=== PATIENT | female | born 1950 | race Caucasian/White ===

== ENCOUNTER 2019-08-08 15:41 | Inpatient (IN) | payer BC, MEDICARE, SELFPAY ==
[2019-08-08] VITALS (8 sets, daily range): BP systolic 65–139; BP diastolic 43–84; PULSE 74–103; RESP 15–20; TEMP 36.7–36.9; O2SAT 92–96; BMI 31.1
--- NOTE | 2019-08-08 16:31 | EKG12_ITS ---
Test Reason : GI BLEED Blood Pressure : / mmHG Vent. Rate : 094 BPM Atrial Rate : 094 BPM P-R Int : 118 ms QRS Dur : 084 ms QT Int : 354 ms P-R-T Axes : 071 087 093 degrees QTc Int : 442 ms Normal sinus rhythm Possible Left atrial enlargement ST & T wave abnormality, consider anterolateral ischemia Abnormal ECG Confirmed by CHERYL PATEL, RAFAEL ([id number]), story editor JAIMIE VILLALTA ([id number]) on 08/10/2019 10:48:30 AM Referred By: Derrick Brooks Confirmed By:RAFAEL LUNA MD
--- NOTE | 2019-08-08 16:35 | NURSING ---
NO OLD EKGS
[2019-08-08 16:45] LABS: Absolute Lymphocyte Count 2.52 X10^3/uL (0.83-4.51); Absolute Neutrophil Count 6.4 X10^3/uL (2.0-7.7); Basophil# 0.05 X10^3/uL; Basophil% 0.5 % (0-1); Eosinophil# 0.23 X10^3/uL; Eosinophils% 2.3 % (0-5); Hematocrit 37.6 % (37-47); Hemoglobin 12.6 g/dL (12.0-15.0); Lymphocyte # 2.52 X10^3/ul (4.0); Lymphocyte % 25.2 % (19-41); Mean Corp Hgb Conc 33.5 g/dL (32-36); Mean Corpuscular Volume 101.3 fL (81-99); Mean Platelet Vol. 10.3 fl (6.2-12.0); Monocyte# 0.75 X10^3/uL; Monocyte% 7.5 % (0-10); NRBC Flagged by Analyzer 0 % (0-5); Neutrophil # 6.43 X10^3/uL (2.7-7.7); Neutrophil % 64.2 % (47-70); Platelet Count 218 K/mm3 (150-450); RBC Distribution Width CV 13.2 % (11.6-14.6); RBC Distribution Width SD 49.2 fl (35.1-43.9); Red Blood Count 3.71 M/mm3 (4.2-5.4)
[2019-08-08 16:53] LABS: International Normalized Ratio 1.1; Partial Thromboplast Time 25.2 Seconds (24.1-36.2); Prothrombin Time (Protime)PT. 14.1 SECONDS (11.7-14.9)
[2019-08-08] MEDS: 0.9% Normal Saline 1,000 ML 150 ML IV (16:55)
[2019-08-08] MEDS: Ondansetron 4 MG/2 ML Vial IV (16:55)
[2019-08-08 17:05] LABS: AST(SGOT) 19 U/L (15-37); Alanine Aminotransfer ALT/SGPT 24 U/L (13-56); Albumin, Serum 3.2 g/dL (3.2-5.0); Alkaline Phosphatase 79 U/L (45-117); Anion Gap 6 (5-15); BUN 21 mg/dL (7-18); BUN/Creat Ratio 35.8 RATIO (10-20); Bilirubin, Direct 0.14 mg/dL (0.00-0.30); Calcium,Total 8.1 mg/dL (8.5-10.1); Chloride 106 mmol/L (98-107); Creatinine, Serum 0.59 mg/dL (0.55-1.02); EST Glomerular Filtration Rate 109 mL/min (>60); Est Glom Filt Rate - Afr Amer 131 mL/min (>60); Estimated Creatinine Clearance 53.09 ml/min; Globulin 2.8 g/dL (2.2-4.2); Glucose 118 mg/dL (74-106); Potassium 3.7 mmol/L (3.5-5.1); Sodium Level 141 mmol/L (136-145)
--- NOTE | 2019-08-08 17:37 | ED.VISSUMM ---
- ER Visit Summary Date of Service: 08/08/19 Chief Complaint: GI bleed History of Present Illness: The patient is a 69 F who states this morning when she woke up she had 3 episodes of black tarry diarrhea stools. She felt nauseous most of the day and very weak. This afternoon she had an episode of vomiting that showed bright red blood. She is on aspirin and Plavix. She had a heart bypass surgery in 1990. She states she recently had heart catheterization that showed the grafts to be open. She is a smoker. She denies any other anti-inflammatory medications. Physical Examination: Afebrile vital signs are stable noted heart rate of 99 Gen: Well-nourished well-developed Head: Normocephalic atraumatic Eyes: Perrl EOMI ENT: TMs clear no rhinorrhea moist mucous membranes Neck: Supple no lymphadenopathy no JVD nontender CVS: Regular rate rhythm no murmurs normal S1-S2 Respiratory: No distress clear to auscultation bilaterally chest nontender Abdomen: Soft nontender nondistended normal bowel sounds no masses Rectal: Black loose stool Back: Nontender Extremity: Nontender no edema Skin: Normal color no rash Neuro: alert orientated ?3 CN II-XII intact normal strength sensation Psych: Normal affect normal mood Test Results: Hemoccult positive. Hemoglobin 12.6. She is typed and screened. Coags obtained. EKG normal sinus rhythm at a rate of 94 without ectopy. Emergency Department Course and Treatment: Patient received IV fluids and Protonix. Her orthostatics are grossly positive as she goes to 60 systolic and almost passes out. Dr. Suárez is on for no doc surgery he would be willing to perform endoscopy tomorrow. Dr. Brooks will be admitting for medicine. Impression: 1. Upper GI bleed 2. Orthostatic hypotension This note was generated with In Flow dictation software. It may contain incorrect words, spelling, and punctuation that were not noted in review of the chart prior to signing ED Disposition - Plan for ED Patient: Referrals: Gaby German, ENEDINA-C [Primary Care Provider] -
--- NOTE | 2019-08-08 17:41 | NURSING ---
PCU UPPER GI BLEED ASHELFAH
--- NOTE | 2019-08-08 17:50 | HP.PCM_ITS ---
<Edwar Morgan - Last Filed: 08/08/19 17:50> Problem List (1) GI bleed Status: Acute (2) Alcohol abuse Status: Chronic (3) Coronary artery disease Status: Chronic (4) Hyperlipidemia Status: Chronic (5) Hypothyroidism Status: Chronic (6) Status post coronary artery bypass graft Status: Chronic History of Present Illness Date of Admission: 08/08/19 Chief Complaint: gi bleed The patient is a 69 year old F with pmhx of CAD with prior CABG in 1990, HLD, smoker - 1 ppd for >40 years, and alcohol abuse drinks 6 beers daily at least who presented to the ER with c/o black stools and coffee ground emesis. She was in her usual state of health until this AM. When she woke up this AM she went to the bathroom and had a black bowel movement. An hour later she had a second black bowel movement. She ate half of a sandwich and went back to bed. She got up later at about 1430 and felt very weak, and became nauseous, dizzy, and lightheaded walking down the stairs. She vomited coffee ground emesis. She was then brought to the ER by squad. Currently she has mild nausea. No abdominal pain. She is very orthostatic in the ER. Lying in bed no dizziness/LH. She denies hx of GI bleeding. She is prescribed plavix, and also takes 2 aspirin containing exedrin daily - she says this is to help with niacin side effects. Dr. Harris was consulted and plans for endoscopy. [] Past Medical History Past Medical History (Chronic Problems): Chronic Problems Alcohol abuse (Chronic) Hypothyroidism (Chronic) Hyperlipidemia (Chronic) Status post coronary artery bypass graft (Chronic) Coronary artery disease (Chronic) Allergies Penicillins [PCN] Allergy (Verified 08/08/19 15:42) Unknown Home Medications: Ambulatory Orders Medication Instructions Recorded Albuterol Sulfate [Albuterol 2 puff INHALATION Q4H PRN PRN 08/08/19 Sulfate Hfa] Aspirin/Acetaminophen/Caffeine 2 tab PO QHS 08/08/19 [Excedrin Migraine Caplet] Clopidogrel Bisulfate [Plavix] 75 mg PO DAILY 08/08/19 Escitalopram Oxalate [Lexapro] 10 mg PO DAILY 08/08/19 Ezetimibe [Zetia] 10 mg PO DAILY 08/08/19 Levothyroxine [Synthroid] 100 mcg PO DAILY 08/08/19 Niacin [Niacin ER] 1,000 mg PO DAILY 08/08/19 Rosuvastatin Calcium [Crestor] 40 mg PO DAILY 08/08/19 Surgical History: coronary bypass surgery, total knee arthroplasty, tonsillectomy Psychiatric History: 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 Denies: Chills, Fever, Weight Change HEENT: Denies: Head Aches, Sinus Congestion, Sinus Drainage Cardiovascular: Denies: Chest Pain, Palpitations Respiratory: Denies: Cough, Shortness of breath at rest, Sputum production Gastrointestinal: Reports: Hematochezia, Nausea, Melena, Vomiting. Denies: Abdominal Pain Genitourinary: Denies: Dysuria Musculoskeletal: Denies: Joint Pain, Joint Tenderness Skin: Denies: Rash, Wounds Neurological: Denies: Numbness, Tingling, Focal weakness Psychiatric: Denies: Anxiety, Depression, Homicidal Ideations, Suicidal Ideations Hematologic/ Lymphatic: Denies: Easy Bruising, Easy Bleeding VTE Information - Inpt Only VTE Present on Admission: No VTE Mechan Device Prophylaxis: SCD's VTE Pharm Prophylaxis ordered?: No Patient Problems: Active and Suspected Problems GI bleed (Acute) - Physical Exam General: Alert, Oriented x3, Cooperative HEENT: Atraumatic, PERRLA, EOMI, Normocephalic Neck: Supple, No JVD, Negative Carotid Bruits Lungs: Clear to auscultation, Normal air movement Cardiovascular: Regular rate, No murmurs Abdomen: Bowel Sounds Present, Soft, Non Tender Extremities: No edema, Capillary Refill Less than 3 Seconds Skin: No rashes, No breakdown Musculoskeletal: No Tenderness to Palpation of Joints or Extremities Neurological: Cranial nerves II-XII grossly intact Psych/Mental Status: Normal Affect, Appropriate, Alert and oriented to time, place, person, mood and affect Vital Signs Temp Pulse Resp BP Pulse Ox 98.2 F 97 20 H 120/60 94 08/08/19 15:42 08/08/19 17:03 08/08/19 15:45 08/08/19 17:03 08/08/19 15:45 Oxygen Delivery Method Room Air Weight: 198 lb 6.656 oz Body Mass Index (BMI) 31.1 Microbiology Past 72 Hours 08/08/19 17:05 Stool Occult Blood (STEPHANIE) - Final Stool Occult Blood Positive Laboratory Tests Past 24 Hrs 08/08/19 08/08/19 08/08/19 15:44 15:44 15:44 WBC 10.0 RBC 3.71 L Hgb 12.6 Hct 37.6 MCV 101.3 H MCH 34.0 H MCHC 33.5 RDW Std Deviation 49.2 H RDW Coeff of Jose Roberto 13.2 Plt Count 218 MPV 10.3 Immature Gran % (Auto) 0.300 Neut % (Auto) 64.2 Lymph % (Auto) 25.2 [place] % (Auto) 7.5 Eos % (Auto) 2.3 Baso % (Auto) 0.5 Absolute Neuts (auto) 6.4 Absolute Lymphs (auto) 2.52 Nucleated RBC % 0 PT 14.1 INR 1.1 APTT 25.2 Sodium 141 Potassium 3.7 Chloride 106 Carbon Dioxide 29.0 Anion Gap 6 BUN 21 H Creatinine 0.59 Estim Creat Clear Calc 53.09 Est GFR (MDRD) Af Amer 131 Est GFR (MDRD) Non-Af 109 BUN/Creatinine Ratio 35.8 H Glucose 118 H Calcium 8.1 L Total Bilirubin 0.50 Direct Bilirubin 0.14 AST 19 ALT 24 Alkaline Phosphatase 79 Total Protein 6.0 L Albumin 3.2 Globulin 2.8 Blood Type Antibody Screen 08/08/19 08/08/19 15:44 17:23 WBC RBC Hgb Hct MCV MCH MCHC RDW Std Deviation RDW Coeff of Jose Roberto Plt Count MPV Immature Gran % (Auto) Neut % (Auto) Lymph % (Auto) [place] % (Auto) Eos % (Auto) Baso % (Auto) Absolute Neuts (auto) Absolute Lymphs (auto) Nucleated RBC % PT INR APTT Sodium Potassium Chloride Carbon Dioxide Anion Gap BUN Creatinine Estim Creat Clear Calc Est GFR (MDRD) Af Amer Est GFR (MDRD) Non-Af BUN/Creatinine Ratio Glucose Calcium Total Bilirubin Direct Bilirubin AST ALT Alkaline Phosphatase Total Protein Albumin Globulin Blood Type Cancelled Pending Antibody Screen Cancelled Pending Assessment/Plan All Active Problems GI bleed (Acute) 1. Acute GI bleed presumed upper - coffee ground emesis and black stools. Hgb normal currently. + orthos in the ER. Dizz/LH on standing. -Risk factors include use of aspirin (2 excedrin daily) and plavix -Drinks at least 6 beers per day -Smokes 1 ppd -Start protonix drip, serial H/H, consult Dr. Harris for endoscopy. IV fluids, clear liquid diet. Type, cross, hold 2 units PRBC 2. CAD with prior CABG - CABG in 1990. 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 plavix held. continue statin. She is not on daily baby aspirin (as she takes daily excedrin), she does not take beta blockers or tim inhibitors 3. Nicotine abuse - Smokes 1 ppd, for at least 40 years. She has been told she has COPD but does not think she has ever been formally diagnosed. Nicotine patch if desired, prn aerosols. 4. Alcohol abuse - drinks at least 6 beers per day. CIWA protocol, PRN ativan 5. Depression - lexapro 6. Hypothyroidism - synthroid 7. HLD - on statin, niacin, zetia DVT ppx: SCDs This patient was seen by Edwar Morgan PA-C under the supervision of Doctor Cecilia. <Derrick Brooks E - Last Filed: 08/08/19 18:13> History of Present Illness The patient is a 69 year old F [] Past Medical History Allergies Penicillins [PCN] Allergy (Verified 08/08/19 15:42) Unknown - Physical Exam Vital Signs Temp Pulse Resp BP Pulse Ox 98.2 F 97 20 H 120/60 94 08/08/19 15:42 08/08/19 17:03 08/08/19 15:45 08/08/19 17:03 08/08/19 15:45 Oxygen Delivery Method Room Air Weight: 198 lb 6.656 oz Body Mass Index (BMI) 31.1 Microbiology Past 72 Hours 08/08/19 17:05 Stool Occult Blood (STEPHANIE) - Final Stool Occult Blood Positive Laboratory Tests Past 24 Hrs 08/08/19 08/08/19 08/08/19 15:44 15:44 15:44 WBC 10.0 RBC 3.71 L Hgb 12.6 Hct 37.6 MCV 101.3 H MCH 34.0 H MCHC 33.5 RDW Std Deviation 49.2 H RDW Coeff of Jose Roberto 13.2 Plt Count 218 MPV 10.3 Immature Gran % (Auto) 0.300 Neut % (Auto) 64.2 Lymph % (Auto) 25.2 [place] % (Auto) 7.5 Eos % (Auto) 2.3 Baso % (Auto) 0.5 Absolute Neuts (auto) 6.4 Absolute Lymphs (auto) 2.52 Nucleated RBC % 0 PT 14.1 INR 1.1 APTT 25.2 Sodium 141 Potassium 3.7 Chloride 106 Carbon Dioxide 29.0 Anion Gap 6 BUN 21 H Creatinine 0.59 Estim Creat Clear Calc 53.09 Est GFR (MDRD) Af Amer 131 Est GFR (MDRD) Non-Af 109 BUN/Creatinine Ratio 35.8 H Glucose 118 H Calcium 8.1 L Total Bilirubin 0.50 Direct Bilirubin 0.14 AST 19 ALT 24 Alkaline Phosphatase 79 Total Protein 6.0 L Albumin 3.2 Globulin 2.8 Blood Type Antibody Screen 08/08/19 08/08/19 15:44 17:23 WBC RBC Hgb Hct MCV MCH MCHC RDW Std Deviation RDW Coeff of Jose Roberto Plt Count MPV Immature Gran % (Auto) Neut % (Auto) Lymph % (Auto) [place] % (Auto) Eos % (Auto) Baso % (Auto) Absolute Neuts (auto) Absolute Lymphs (auto) Nucleated RBC % PT INR APTT Sodium Potassium Chloride Carbon Dioxide Anion Gap BUN Creatinine Estim Creat Clear Calc Est GFR (MDRD) Af Amer Est GFR (MDRD) Non-Af BUN/Creatinine Ratio Glucose Calcium Total Bilirubin Direct Bilirubin AST ALT Alkaline Phosphatase Total Protein Albumin Globulin Blood Type Cancelled Pending Antibody Screen Cancelled Pending Blood pressure on laying flat was 120/60, 133/65 while sitting and dropped down to 65/43 upon standing. Orthostatic hypotension positive. Assessment/Plan Hospitalist note: I am seeing this patient in conjunction with Edwar Morgan. I independently seen and examined the patient. History and physical, laboratory data reviewed and I concur with the above admission and work-up plan. Patient presented to the emergency room because of black tarry stools that started today morning, had 3 bowel movement with dark black stools, associated with one episode of coffee- ground emesis as well as dizziness and weakness and without aggravating or relieving factors. She reported associated nausea as well. She denied chest pain, shortness of breath, syncope. She has been on aspirin and Plavix for history of CAD status post CABG in 1990 and she has been drinking alcohol daily, she drinks about 6 beers daily. In the emergency department, she was afebrile, tachycardic, blood pressure was stable but her orthostatic vitals were positive for orthostatic hypotension. Pulse ox was maintained on room air. Routine blood work was unremarkable. LFT was normal. She is being admitted for GI bleed probably upper GI bleed with orthostatic hypotension and tachycardia. - Physical Exam General: Alert, Oriented x3, Cooperative, No apparent distress. HEENT: Atraumatic, PERRLA, EOMI. Neck: Supple, No JVD, Negative Carotid Bruits, Trachea Midline, Thyroid Normal. Lungs: Clear to auscultation, Normal air movement, No rhonchi, No wheeze, No rales. Cardiovascular: Regular rate, Regular Rhythm, Normal S1, Normal S2, PMI Normal. Abdomen: Bowel Sounds Present, Soft, Non Tender, Non-Distended, No Hepato- splenomegaly. Extremities: No clubbing, No cyanosis, No edema Skin: No rashes, No breakdown Neurological: Normal power and tone of all limbs, cranial nerves are intact, neuro grossly intact. Assessment and plan: #1 GI bleed: Probably upper GI bleed. Patient has been on aspirin, Plavix and she drinks alcohol every day. Peptic ulcer disease is the differential diagnosis. Patient developed orthostatic hypotension and she has been tachycardic. BUN is 21. Plan: Admit to PCU, cardiac monitoring, IV fluids, keep on clear liquids, start IV Protonix drip, H&H every 8 hours, type and crossmatch 2 units of packed RBCs, transfuse if hemoglobin less than 8 g/dL, general surgery consult for upper endoscopy, repeat CBC and BMP tomorrow morning. #2 alcohol abuse: Patient drinks at least 6 beers daily. Plan for CIWA protocol, PRN Ativan. #3 CAD status post CABG: She had CABG back in 1990. She denies any chest pain or shortness of breath. Plan to hold Plavix and aspirin, continue statins. She is not on beta-blockers or TIM inhibitors. #4 other chronic medical problems: Stable, continue current medications as above. This note was generated with [employer] dictation software. It may contain incorrect words, spelling, and punctuation that were not noted in checking the note before signing. Code Visit Inpatient E&M: 19036 Init Hosp L3
--- NOTE | 2019-08-08 18:00 | NURSING ---
DR ACEVES IN ROOM
--- NOTE | 2019-08-08 18:22 | CON.PCM_ITS ---
Reason for Consult Date of Consultation: 08/08/19 Reason for Consultation: hemetemesis History of Present Illness: The patient is a 69 year old F who noted 3 bloody bowel movements today, then had one episode of hematemesis and felt dizzy. She presented to [facility] ER. She was found to be orthostatic. She has a history of CAD, S/p CABG in the past. No PTCA or stents. told had a negative recent cardiac workup. She is taking plavix and aspirin. She smokes, drinks 6+ beers/day. Past Medical History Past Medical History (Chronic Problems): Chronic Problems Alcohol abuse (Chronic) Hypothyroidism (Chronic) Hyperlipidemia (Chronic) Status post coronary artery bypass graft (Chronic) Coronary artery disease (Chronic) Allergies Penicillins [PCN] Allergy (Verified 08/08/19 15:42) Unknown Home Medications: Ambulatory Orders Medication Instructions Recorded Albuterol Sulfate [Albuterol 2 puff INHALATION Q4H PRN PRN 08/08/19 Sulfate Hfa] Aspirin/Acetaminophen/Caffeine 2 tab PO QHS 08/08/19 [Excedrin Migraine Caplet] Clopidogrel Bisulfate [Plavix] 75 mg PO DAILY 08/08/19 Escitalopram Oxalate [Lexapro] 10 mg PO DAILY 08/08/19 Ezetimibe [Zetia] 10 mg PO DAILY 08/08/19 Levothyroxine [Synthroid] 100 mcg PO DAILY 08/08/19 Niacin [Niacin ER] 1,000 mg PO DAILY 08/08/19 Rosuvastatin Calcium [Crestor] 40 mg PO DAILY 08/08/19 Surgical History: coronary bypass surgery, total knee arthroplasty, tonsillectomy Psychiatric History: 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 Denies: Chest Pain, Palpitations Respiratory: Denies: Cough, Shortness of breath at rest, Sputum production Gastrointestinal: Reports: Hematemesis, Hematochezia, Melena. Denies: Abdominal Pain, Nausea, Vomiting Genitourinary: Denies: Dysuria Musculoskeletal: Denies: Joint Pain, Joint Tenderness Skin: Denies: Rash, Wounds Neurological: Denies: Numbness, Tingling, Focal weakness Psychiatric: Denies: Anxiety, Depression, Homicidal Ideations, Suicidal Ideations Hematologic/ Lymphatic: Denies: Easy Bruising, Easy Bleeding Patient Problems: Active and Suspected Problems GI bleed (Acute) - Physical Exam General: Alert, Oriented x3, Cooperative Lungs: Clear to auscultation, Normal air movement Cardiovascular: Regular rate, No murmurs Abdomen: Bowel Sounds Present, Soft, Non Tender Vital Signs Temp Pulse Resp BP Pulse Ox 98.2 F 97 15 124/84 H 92 08/08/19 15:42 08/08/19 18:08 08/08/19 18:08 08/08/19 18:08 08/08/19 18:08 Oxygen Delivery Method Room Air Weight: 90 kg Body Mass Index (BMI) 31.1 Microbiology Past 72 Hours 08/08/19 17:05 Stool Occult Blood (STEPHANIE) - Final Stool Occult Blood Positive Laboratory Tests Past 24 Hrs 08/08/19 08/08/19 08/08/19 15:44 15:44 15:44 WBC 10.0 RBC 3.71 L Hgb 12.6 Hct 37.6 MCV 101.3 H MCH 34.0 H MCHC 33.5 RDW Std Deviation 49.2 H RDW Coeff of Jose Roberto 13.2 Plt Count 218 MPV 10.3 Immature Gran % (Auto) 0.300 Neut % (Auto) 64.2 Lymph % (Auto) 25.2 [place] % (Auto) 7.5 Eos % (Auto) 2.3 Baso % (Auto) 0.5 Absolute Neuts (auto) 6.4 Absolute Lymphs (auto) 2.52 Nucleated RBC % 0 PT 14.1 INR 1.1 APTT 25.2 Sodium 141 Potassium 3.7 Chloride 106 Carbon Dioxide 29.0 Anion Gap 6 BUN 21 H Creatinine 0.59 Estim Creat Clear Calc 53.09 Est GFR (MDRD) Af Amer 131 Est GFR (MDRD) Non-Af 109 BUN/Creatinine Ratio 35.8 H Glucose 118 H Calcium 8.1 L Total Bilirubin 0.50 Direct Bilirubin 0.14 AST 19 ALT 24 Alkaline Phosphatase 79 Total Protein 6.0 L Albumin 3.2 Globulin 2.8 Blood Type Antibody Screen 08/08/19 08/08/19 15:44 17:23 WBC RBC Hgb Hct MCV MCH MCHC RDW Std Deviation RDW Coeff of Jose Roberto Plt Count MPV Immature Gran % (Auto) Neut % (Auto) Lymph % (Auto) [place] % (Auto) Eos % (Auto) Baso % (Auto) Absolute Neuts (auto) Absolute Lymphs (auto) Nucleated RBC % PT INR APTT Sodium Potassium Chloride Carbon Dioxide Anion Gap BUN Creatinine Estim Creat Clear Calc Est GFR (MDRD) Af Amer Est GFR (MDRD) Non-Af BUN/Creatinine Ratio Glucose Calcium Total Bilirubin Direct Bilirubin AST ALT Alkaline Phosphatase Total Protein Albumin Globulin Blood Type Cancelled Pending Antibody Screen Cancelled Pending Assessment/Plan All Active Problems GI bleed (Acute) GI bleed - likely ulcer She will be admitted. resuscitation, type and screen. Protonix IV started. Will plan for EGD with possible control of bleeding in am. THe patient understands the risks, benefits, possible complications and alternatives and consents to the planned procedure.
[2019-08-08] MEDS: 0.9% Normal Saline 1,000 ML 100 ML IV (19:16)
[2019-08-08 19:49] LABS: Hematocrit 35.8 % (37-47); Hemoglobin 11.8 g/dL (12.0-15.0)
[2019-08-09] VITALS (16 sets, daily range): BP systolic 87–120; BP diastolic 39–71; PULSE 58–89; RESP 16–95; TEMP 36.3–37.1; O2SAT 90–100; BMI 31.1
[2019-08-09 03:44] LABS: Absolute Lymphocyte Count 3.17 X10^3/uL (0.83-4.51); Absolute Neutrophil Count 2.5 X10^3/uL (2.0-7.7); Basophil# 0.03 X10^3/uL; Basophil% 0.5 % (0-1); Eosinophils% 1.6 % (0-5); Hematocrit 32.1 % (37-47); Hemoglobin 10.4 g/dL (12.0-15.0); Lymphocyte # 3.17 X10^3/ul (4.0); Lymphocyte % 50.2 % (19-41); Mean Corp Hgb Conc 32.4 g/dL (32-36); Mean Corpuscular Hgb 33.2 pg (27.0-32.0); Mean Corpuscular Volume 102.6 fL (81-99); Mean Platelet Vol. 9.8 fl (6.2-12.0); Monocyte% 7.9 % (0-10); NRBC Flagged by Analyzer 0 % (0-5); Neutrophil % 39.6 % (47-70); Platelet Count 192 K/mm3 (150-450); RBC Distribution Width CV 13.3 % (11.6-14.6); RBC Distribution Width SD 49.8 fl (35.1-43.9); Red Blood Count 3.13 M/mm3 (4.2-5.4); White Blood Count 6.3 K/mm3 (4.4-11.0)
[2019-08-09 03:49] LABS: Anion Gap 6 (5-15); BUN 30 mg/dL (7-18); BUN/Creat Ratio 50.6 RATIO (10-20); Calcium,Total 7.6 mg/dL (8.5-10.1); Chloride 110 mmol/L (98-107); Creatinine, Serum 0.59 mg/dL (0.55-1.02); EST Glomerular Filtration Rate 107 mL/min (>60); Est Glom Filt Rate - Afr Amer 130 mL/min (>60); Estimated Creatinine Clearance 53.09 ml/min; Glucose 96 mg/dL (74-106); Potassium 3.9 mmol/L (3.5-5.1); Sodium Level 145 mmol/L (136-145)
[2019-08-09] MEDS: 0.9% Normal Saline 1,000 ML 100 ML IV ×2 (05:20→07:39)
--- NOTE | 2019-08-09 06:35 | IMM_PTH ---
PATIENT: HENRY PEDERSON LOC: PCU U#:[id number] AGE/SX: 69/F ROOM: [facility] RE08/08/[address]: Dr. Robbie Nicole MD : 1950 BED: 1 DIS: 08/10/2019 SPEC #: [id number] RECD: 08/09/19 15:43 STATUS: JANAE REQ #: [id number] HEIID: 08/09/19 06:[address]: Wilner Harris DEPT: IMMUNOHISTOCHEMISTRY RECD BY: Monae Bullard ENTERED: 08/09/19 15:44 SP TYPE: IMMUNO OTHR DR: MD Dr. Derrick Kirby MD Dr. Paul Moodispaw, MD Kathy Seitz, PEARL GLUE DRIER-C Tissues: A - Stomach, NOS Procedures: H Pylori (initial) PHYSICIAN & INSTITUTION [place] [id number] SPECIMEN INFORMATION: Tissue Source: A - Antrum biopsy Clinical Info: GI bleed Specimen Number: [id number] CPT code: 10176 METHODOLOGY: Deparaffinized sections of prefer/formalin-fixed tissue or PAP/DQ stained slides are incubated with monoclonal/polyclonal antibodies/oligonucleotide probes. Localization is made via biotin free immunoperoxidase method. Appropriate controls are performed and reacted as expected. Results on target cell population are indicated in the following table: RESULTS: ANTIBODY / CLONE RESULT Block A H Pylori (polyclonal) negative These tests were developed and their performance characteristics determined by [facility]. They may not have been cleared or approved by the U.S. Food and Drug Administration. The FDA has determined that such clearance or approval is not necessary. INTERPRETATION: A. Antrum biopsy: Negative for Helicobacter pylori organisms. SJ:elizabeth 08/11/19
--- NOTE | 2019-08-09 06:35 | EGD_PTH ---
PATIENT: HENRY PEDERSON LOC: PCU U#:[id number] AGE/SX: 69/F ROOM: [facility] RE08/08/[address]: Dr. Robbie Nicole MD : 1950 BED: 1 DIS: 08/10/2019 SPEC #: [id number] RECD: 08/09/19 10:22 STATUS: JANAE CINTHIA #: [id number] HEIDI: 08/09/19 06:[address]: Wilner Harris DEPT: SURGICAL PATHOLOGY RECD BY: Carlos Lees ENTERED: 08/09/19 13:38 SP TYPE: EGD BIOPSY OT DR: MD Dr. Derrick Kirby MD Dr. Paul Moodispaw, MD Kathy Seitz, WINERY WORKER-C Tissues: A - Gastric mucous membrane B - Gastric mucous membrane Procedures: Special Stain Group II Surgery Specimen Level IV Alcian Blue/PAS (control) HEADER OPERATION: EGD ([facility] [place]) PRE-OP DIAGNOSIS: GI bleed TISSUE SUBMITTED: A - Antrum biopsy for H. pylori and path, B - GE junction biopsy MICROSCOPIC DIAGNOSIS A. Antrum, biopsy: Mild gastritis. See microscopic description and comment. B. GE junction, biopsy: A fragment of gastroesophageal mucosa with mild chronic inflammation. Intestinal metaplasia (goblet cell metaplasia) is not identified. See comment. SJ:elizabeth 08/10/19 COMMENT A. The results of immunohistochemistry for Helicobacter pylori will be reported separately ([id number]). B. Alcian blue/PAS stain with matched control is used in the evaluation of the specimen. MICROSCOPIC DESCRIPTION Slides are reviewed. A. The specimen shows fragments of gastric mucosa with chronic inflammatory cell infiltrates in the lamina propria consisting of lymphocytes and plasma cells, consistent with mild chronic gastritis. GROSS DESCRIPTION A - Received in fixative is one container labeled with the patient's name and designated antrum biopsy. The specimen consists of one irregular fragment of light wright soft tissue that measures 0.2 x 0.2 x 0.1 cm. The specimen is totally submitted in one cassette. B - Received in fixative is one container labeled with the patient's name and designated GE junction biopsy. The specimen consists of one irregular fragment of light wright soft tissue that measures 0.3 x 0.3 x 0.1 cm. The specimen is totally submitted in one cassette. / AM:elizabeth 08/09/19 TC: CPT: 91612 x2, [id number]
--- NOTE | 2019-08-09 06:59 | PCM.PN.SRG ---
Patient Problems: Active and Suspected Problems GI bleed (Acute) Subjective: no further hematemesis - Physical Exam General: Alert, Oriented x3, Cooperative Lungs: Clear to auscultation, Normal air movement Cardiovascular: Regular rate, No murmurs Abdomen: Bowel Sounds Present, Soft, Non Tender Vital Signs Temp Pulse Resp BP Pulse Ox 97.9 F 86 18 113/59 L 94 08/09/19 05:19 08/09/19 05:19 08/09/19 05:19 08/09/19 05:19 08/09/19 05:19 Oxygen Delivery Method CPAP Weight: 90 kg Body Mass Index (BMI) 31.1 Intake and Output for Last 24 Hours 08/07/19 08/08/19 08/09/19 23:59 23:59 23:59 Intake Total 462.5 / 702.5 240 / 240 Output Total 300 / 300 Balance 462.5 / 402.5 -60 / -60 Microbiology Past 72 Hours 08/08/19 17:05 Stool Occult Blood (STEPHANIE) - Final Stool Occult Blood Positive Laboratory Tests Past 24 Hrs 08/08/19 08/08/19 08/08/19 15:44 15:44 15:44 WBC 10.0 RBC 3.71 L Hgb 12.6 Hct 37.6 MCV 101.3 H MCH 34.0 H MCHC 33.5 RDW Std Deviation 49.2 H RDW Coeff of Jose Roberto 13.2 Plt Count 218 MPV 10.3 Immature Gran % (Auto) 0.300 Neut % (Auto) 64.2 Lymph % (Auto) 25.2 [place] % (Auto) 7.5 Eos % (Auto) 2.3 Baso % (Auto) 0.5 Absolute Neuts (auto) 6.4 Absolute Lymphs (auto) 2.52 Nucleated RBC % 0 PT 14.1 INR 1.1 APTT 25.2 Sodium 141 Potassium 3.7 Chloride 106 Carbon Dioxide 29.0 Anion Gap 6 BUN 21 H Creatinine 0.59 Estim Creat Clear Calc 53.09 Est GFR (MDRD) Af Amer 131 Est GFR (MDRD) Non-Af 109 BUN/Creatinine Ratio 35.8 H Glucose 118 H Calcium 8.1 L Total Bilirubin 0.50 Direct Bilirubin 0.14 AST 19 ALT 24 Alkaline Phosphatase 79 Total Protein 6.0 L Albumin 3.2 Globulin 2.8 Blood Type Antibody Screen Crossmatch 08/08/19 08/08/19 08/08/19 15:44 17:23 17:25 WBC RBC Hgb Hct MCV MCH MCHC RDW Std Deviation RDW Coeff of Jose Roberto Plt Count MPV Immature Gran % (Auto) Neut % (Auto) Lymph % (Auto) [place] % (Auto) Eos % (Auto) Baso % (Auto) Absolute Neuts (auto) Absolute Lymphs (auto) Nucleated RBC % PT INR APTT Sodium Potassium Chloride Carbon Dioxide Anion Gap BUN Creatinine Estim Creat Clear Calc Est GFR (MDRD) Af Amer Est GFR (MDRD) Non-Af BUN/Creatinine Ratio Glucose Calcium Total Bilirubin Direct Bilirubin AST ALT Alkaline Phosphatase Total Protein Albumin Globulin Blood Type Cancelled O POSITIVE Antibody Screen Cancelled NEGATIVE Crossmatch See Detail 08/08/19 08/09/19 08/09/19 19:34 03:18 03:18 WBC 6.3 RBC 3.13 L Hgb 11.8 L 10.4 L Hct 35.8 L 32.1 L MCV 102.6 H MCH 33.2 H MCHC 32.4 RDW Std Deviation 49.8 H RDW Coeff of Jose Roberto 13.3 Plt Count 192 MPV 9.8 Immature Gran % (Auto) 0.200 Neut % (Auto) 39.6 L Lymph % (Auto) 50.2 H [place] % (Auto) 7.9 Eos % (Auto) 1.6 Baso % (Auto) 0.5 Absolute Neuts (auto) 2.5 Absolute Lymphs (auto) 3.17 Nucleated RBC % 0 PT INR APTT Sodium 145 Potassium 3.9 Chloride 110 H Carbon Dioxide 29.0 Anion Gap 6 BUN 30 H Creatinine 0.59 Estim Creat Clear Calc 53.09 Est GFR (MDRD) Af Amer 130 Est GFR (MDRD) Non-Af 107 BUN/Creatinine Ratio 50.6 H Glucose 96 Calcium 7.6 L Total Bilirubin Direct Bilirubin AST ALT Alkaline Phosphatase Total Protein Albumin Globulin Blood Type Antibody Screen Crossmatch Medical Necessity - Tobacco Use Smoking Status: Current every day smoker Tobacco Use: Cigarettes Assessment/Plan All Active Problems GI bleed (Acute) GI bleed - pyloric channel ulcer with clot Ok with clear liquids. continue resuscitation, type and screen. Continue Protonix. Will follow for need for repeat EGD if rebleeds due to visible clot. EKG demonstrated lateral ST depression. would defer to hospitalist service
--- NOTE | 2019-08-09 07:00 | OP.ENDO_ITS ---
08/09/2019 Aurora Santiago Re : Upper GI endoscopy procedure for Corinne Rosario Dear Maxi This procedure was performed on Friday, August 09, 2019. My impressions and recommendations are as follows: Impressions : - Normal examined jejunum. - Duodenitis. - Non-bleeding gastric ulcer with adherent clot. - Gastritis. Biopsied. - Small hiatal hernia. - Mildly severe reflux esophagitis. Biopsied. Recommendations : - [facility]. - Clear liquid diet. - Continue present medications. - Await pathology results. - Return to my office in 1 week. My findings are described in the full procedure note, which is enclosed. If I can be of further assistance, please feel free to contact me at Doctor phone number(s): , Work: . Sincerely, Wilner Harris MD 08/09/2019 6:59:41 AM This report has been signed electronically.
[2019-08-09 09:15] LABS: Magnesium 1.7 mg/dL (1.6-2.6); Thyroid Stim Hormone (TSH) 0.53 uIU/mL (0.358-3.74)
--- NOTE | 2019-08-09 10:10 | EKG12_ITS ---
Test Reason : ROUTINE Blood Pressure : / mmHG Vent. Rate : 069 BPM Atrial Rate : 277 BPM P-R Int : 000 ms QRS Dur : 082 ms QT Int : 404 ms P-R-T Axes : 037 077 149 degrees QTc Int : 432 ms Normal sinus rhythm ST & T wave abnormality, consider anterolateral ischemia Abnormal ECG When compared with ECG of 08-AUG-2019 16:54, MANUAL COMPARISON REQUIRED, DATA IS UNCONFIRMED Confirmed by ERNESTINA PATEL, LARRY ([id number]), editor dictionary JAIMIE VILLALTA ([id number]) on 08/12/2019 10:37:28 A M Referred By: Derrcik Brooks Confirmed By:TEO DO MD
--- NOTE | 2019-08-09 11:14 | CASEMGMT ---
According to the [facility] website, the following are in-network tertiary facilities: [facility], [facility], [facility], [facility], [facility], [facility], [facility], [place], [facility], and . Aldo MONROY CM
--- NOTE | 2019-08-09 11:32 | CASEMGMT ---
RN CM Assessment Presentation: UGIB, ETOH abuse Intro role of CM and purpose of RN CM assessment to patient in room. Pt is awake, alert and able to participate in assessment. Demographics, PCP and Pharmacy verified. Pt states she is very independent, no assistance needed @ home. PCP: Gaby German, [facility] Specialists: Dr. Harris Preferred Pharmacy: [facility] Insurance: [place] Prescription Benefit: yes LNOK: Mercedes Handley, listed Living Arrangements: lives in split level home. Pt is independent, no care needs identified. Transportation: drives DME: none HHC: none SW consult: ETOH abuse. DONNELL Elder updated Patient DC goals: Home DC PLAN: Home with family support. RN CM let pt know cm is available if dc concerns,needs arise. Antonio HEMPHILLN RN ACM
--- NOTE | 2019-08-09 12:31 | PCM.CONS.C ---
<Cam Lynne - Last Filed: 08/09/19 13:09> Problem List (1) Hyperlipidemia Status: Chronic (2) Status post coronary artery bypass graft Status: Chronic (3) Coronary artery disease Status: Chronic Reason for Consult Date of Consultation: 08/09/19 Reason for Consultation: ST segment depression in setting of previous CABG History of Present Illness: The patient is a 69 year old F who presented to [facility] on 08/08/2019 after noting black tarry stool and general weakness. She has a previous cardiac history of coronary artery bypass sugery in 1990 with REY to mid LAD, MAKEDA to distal RCA, and SVG to obtuse marginal branch of circumflex, hyperlipidemia, valvular heart disease, and current smoker. Prior to presented to Emergency Department she had episodes of coffee-ground emesis. She was noted to feel very weak. Her emergency department work-up showed orthostatic hypotension. She was admitted for further evaluation. She underwent an upper GI scope which showed a pyloric ulcer and mildly severe esophagitis. There were concerns regarding ST depression and T wave changes. Cardiology was consulted for further management and recommendation. Past Medical History Allergies/Adverse Reactions: Allergies Penicillins [PCN] Allergy (Verified 08/08/19 15:42) Unknown Home Medications: Ambulatory Orders Medication Instructions Recorded Albuterol Sulfate [Albuterol 2 puff INHALATION Q4H PRN PRN 08/08/19 Sulfate Hfa] Aspirin/Acetaminophen/Caffeine 2 tab PO QHS 08/08/19 [Excedrin Migraine Caplet] Clopidogrel Bisulfate [Plavix] 75 mg PO DAILY 08/08/19 Escitalopram Oxalate [Lexapro] 10 mg PO DAILY 08/08/19 Ezetimibe [Zetia] 10 mg PO DAILY 08/08/19 Levothyroxine [Synthroid] 100 mcg PO DAILY 08/08/19 Niacin [Niacin ER] 1,000 mg PO DAILY 08/08/19 Rosuvastatin Calcium [Crestor] 40 mg PO DAILY 08/08/19 Past Medical History (Chronic Problems): Chronic Problems Alcohol abuse (Chronic) Hypothyroidism (Chronic) Hyperlipidemia (Chronic) Status post coronary artery bypass graft (Chronic) Coronary artery disease (Chronic) Surgical History: coronary bypass surgery, total knee arthroplasty, tonsillectomy Psychiatric History: No pertinent psych hx DISABILITY LIAISON OFFICER History: No pertinent DISABILITY LIAISON OFFICER history - *Family History Maternal History Items: COPD Paternal History Items: Heart Disease, Stroke Lives: Spouse/ Significant Other Smoking Status: Current every day smoker Tobacco Use: Cigarettes Alcohol: Heavy Drugs: None Review of Systems - Review of Systems General: Reports: Weakness. Denies: Fever, Fatigue, Malaise, Chills, Night Sweats HEENT: Denies: Vision Change Cardiovascular: Denies: Chest Discomfort, Chest Discomfort at Rest, Chest Discomfort with Exertion, Chest Pressure, Chest Tightness, Chest Heaviness, Shortness of Breath, Shortness of Breath at Rest, Shortness of Breath with Exertion, Orthopnea, PND, Peripheral Edema, Palpitations, Lightheadedness, Dizziness, Near Syncope, Syncope Respiratory: Denies: Cough Muscoloskeletal: Denies: Myalgias, Claudication Skin: Denies: Rash Neurological: Reports: Dizziness Subjectve: Patient seen and evaluated. She denies any ongoing chest pain or shortness of breath. She acknowledges a recent heart catheterization. Objective: Vital Signs Temp Pulse Resp BP Pulse Ox 98.5 F 70 16 107/62 96 08/09/19 11:41 08/09/19 11:41 08/09/19 11:41 08/09/19 11:41 08/09/19 11:41 Oxygen Flow Rate (L/min) 2 Oxygen Delivery Method Room Air Weight: 198 lb 6.656 oz Body Mass Index (BMI) 31.1 Intake and Output for Last 24 Hours 08/07/19 08/08/19 08/09/19 23:59 23:59 23:59 Intake Total 462.5 / 702.5 2542.92 / 2542.92 Output Total 300 / 300 Balance 462.5 / 402.5 2242.92 / 2242.92 General: Healthy Appearing, Awake, Alert, Oriented x 3, Cooperative HEENT: Atraumatic Oral: Moist Mucosa Neck: No JVD Lungs: Clear to auscultation Cardiovascular: Regular Rhythm, Normal S1, Normal S2, No Rubs, No Gallops Murmur Murmur: Grade 2/6, Mid Systolic, RLSB Vascular: No Carotid Bruits Abdomen: Bowel Sounds Present, Soft Extremities: No Cyanosis, No Clubbing, No edema, Normal Capillary Refill Skin: No Rashes Neurological: No Focal Motor or Sensory Deficit Psych/Mental Status: Appropriate 08/08/19 15:44: WBC 10.0, RBC 3.71 L, Hgb 12.6, Hct 37.6, MCV 101.3 H, MCH 34.0 H, MCHC 33.5, Plt Count 218, MPV 10.3, Immature Gran % (Auto) 0.300, Neut % (Auto) 64.2, Lymph % (Auto) 25.2, [place] % (Auto) 7.5, Eos % (Auto) 2.3, Baso % (Auto) 0.5, Absolute Neuts (auto) 6.4, Nucleated RBC % 0 08/08/19 15:44: PT 14.1, INR 1.1, APTT 25.2 08/08/19 15:44: Sodium 141, Potassium 3.7, Chloride 106, Carbon Dioxide 29.0, Anion Gap 6, BUN 21 H, Creatinine 0.59, Est GFR (MDRD) Af Amer 131, Est GFR (MDRD) Non-Af 109, BUN/Creatinine Ratio 35.8 H, Glucose 118 H, Calcium 8.1 L, Total Bilirubin 0.50, Direct Bilirubin 0.14 08/08/19 19:34: Hgb 11.8 L, Hct 35.8 L 08/09/19 03:18: WBC 6.3, RBC 3.13 L, Hgb 10.4 L, Hct 32.1 L, MCV 102.6 H, MCH 33.2 H, MCHC 32.4, Plt Count 192, MPV 9.8, Immature Gran % (Auto) 0.200, Neut % (Auto) 39.6 L, Lymph % (Auto) 50.2 H, [place] % (Auto) 7.9, Eos % (Auto) 1.6, Baso % (Auto) 0.5, Absolute Neuts (auto) 2.5, Nucleated RBC % 0 08/09/19 03:18: Sodium 145, Potassium 3.9, Chloride 110 H, Carbon Dioxide 29.0, Anion Gap 6, BUN 30 H, Creatinine 0.59, Est GFR (MDRD) Af Amer 130, Est GFR (MDRD) Non-Af 107, BUN/Creatinine Ratio 50.6 H, Glucose 96, Calcium 7.6 L 08/09/19 03:18: Magnesium 1.7, Troponin I 0.018 08/09/19 10:40: Troponin I < 0.015 Rhythm: EKG: ECHO: Stress Test: Cardiac Cath: 03/23/2019 Impressions and recommendations: 1. Normal left ventricular systolic function with estimated LV ejection fraction of 65%. 2. Normal left ventricular end-diastolic pressure. 3. Patent left internal mammary graft to the mid left anterior descending. 4. Patent right internal mammary graft to the distal right coronary artery. 5. Patent saphenous vein graft to the obtuse marginal branch of the circumflex. 6. Triple-vessel coronary artery disease. PCI: CT Surgery: Holter monitor: EPS: PPM: CXR: Chest CT Scan: Assessment/Plan 1. Atherosclerotic Coronary Artery Disease Patient has a history of coronary artery bypass in 1990. She underwent a recent heart catheterization on 03/23/2019 at [facility] with Dr. Padilla. Her report as noted above showed patent bypass grafts and an ejection fraction of 65%. Patient denies any chest pain or shortness of breath prior to admission or currently. Her EKG does reveal T wave inversion which appears similar to prior EKG on 03/23/2019. She does have a telemetry strip that shows ST depression and lead II. However, her 12- lead EKG does not reveal ST depression. Given her lack of cardiac symptoms, negative troponin, and recent heart catheterization showing bypass grafts, medical management is recommended. Ideally, this would include such medications as beta-blockers or TIM inhibitor/ARB's. Patient states that she has trialed such medication and has had intolerance to them such as nausea, bradycardia, or hypertension. She has recently tried Imdur and noted nausea. Given her recent diagnosis of upper GI bleed and pyloric ulcer it is reasonable to consider discontinuing Plavix or Aspirin given that she has not had any previous stenting. These medications are currently on hold. However, given her history of bypass and other risk factors it is recommended she continue with Aspirin or Plavix. GI may have input regarding this given her recent scope. The ultimate decision for her Plavix or Aspirin can be left to her primary fire sprinkler inspector on an outpatient basis. 2. Hyperlipidemia She will continue current cholesterol-lowering medications and follow with primary fire sprinkler inspector on an outpatient basis. 3. Valvular heart disease The exact the details of her valvular heart disease are unknown. She does acknowledge a recent echocardiogram. The results are not available for review. Based on exam, this appears stable. Given her lack of symptoms, she does not need an echocardiogram to evaluate further. Patient's case was discussed further with Dr. Henderson who will also evaluate the patient personally. Thank you for allowing us to participate in the patients plan of care, if you have any questions please do not hesitate to call. This note was generated using a voice recognition system and there may be incorrect words, spelling or punctuation that were not noted when reviewing the office note prior to saving. <Reinier Henderson - Last Filed: 08/09/19 20:56> Objective: Vital Signs Temp Pulse Resp BP Pulse Ox 98.4 F 65 16 115/49 L 94 08/09/19 20:40 08/09/19 20:40 08/09/19 20:40 08/09/19 20:40 08/09/19 20:40 Oxygen Flow Rate (L/min) 2 Oxygen Delivery Method CPAP Weight: 198 lb 6.656 oz Body Mass Index (BMI) 31.1 Intake and Output for Last 24 Hours 08/07/19 08/08/19 08/09/19 23:59 23:59 23:59 Intake Total 462.5 / 702.5 3471.92 / 3471.92 Output Total 300 / 300 Balance 462.5 / 402.5 3171.92 / 3171.92 08/09/19 03:18: WBC 6.3, RBC 3.13 L, Hgb 10.4 L, Hct 32.1 L, MCV 102.6 H, MCH 33.2 H, MCHC 32.4, Plt Count 192, MPV 9.8, Immature Gran % (Auto) 0.200, Neut % (Auto) 39.6 L, Lymph % (Auto) 50.2 H, [place] % (Auto) 7.9, Eos % (Auto) 1.6, Baso % (Auto) 0.5, Absolute Neuts (auto) 2.5, Nucleated RBC % 0 08/09/19 03:18: Sodium 145, Potassium 3.9, Chloride 110 H, Carbon Dioxide 29.0, Anion Gap 6, BUN 30 H, Creatinine 0.59, Est GFR (MDRD) Af Amer 130, Est GFR (MDRD) Non-Af 107, BUN/Creatinine Ratio 50.6 H, Glucose 96, Calcium 7.6 L 08/09/19 03:18: Magnesium 1.7, Troponin I 0.018 08/09/19 10:40: Troponin I < 0.015 08/09/19 13:50: Hgb 8.8 L, Hct 26.9 L 08/09/19 13:50: Troponin I < 0.015 08/09/19 16:18: Troponin I < 0.015 Rhythm: EKG: ECHO: Stress Test: Cardiac Cath: PCI: CT Surgery: Holter monitor: EPS: PPM: CXR: Chest CT Scan: Assessment/Plan Addendum: Date: 08-09-19 The patient was independently evaluated and examined The patient has a history of underlying CAD. She underwent CABG in 1990 in [place], [place]. She has been followed locally in [place], [place]. She states based upon concerns she underwent further evaluation in March of this year in [place], [place]. This included a diagnostic cardiac catheterization. At that time her chilkoot coronary artery disease was fine, her grafts were defined is patent, her LV systolic function was reported as normal, she required no further mechanical intervention. She was destined for continued conservative medical management. At the present time she has presented with concerns of the blood to the diagnosis of gastrointestinal bleeding. She is undergone evaluation with EGD. It is demonstrated gastric ulcer disease with associated clot. She denies ongoing symptoms of classic angina pectoris. There is been no obvious evidence of CHF or pulmonary edema. There has been no near syncope or syncope. She has not complained of ongoing peripheral pitting edema. During her hospitalization there were concerns about her cardiovascular status. Troponin I levels were obtained which were negative. Her ECG demonstrated sinus rhythm with ST segment changes concerning for anterolateral myocardial ischemia. Thus cardiology was consulted. During her evaluation a previous ECG from [place], [place] was obtained from 03/23/2019. It demonstrated sinus rhythm with ST segment changes concerning for anterolateral myocardial ischemia. Diagnostic cardiac catheterization from that date was obtained. She has significant underlying chilkoot vessel disease reporting occlusion of her LAD, LCx, and RCA systems. She had a patent REY to the LAD, patent SVG to the LCx system, patent MAKEDA to the RCA system. Left ventricular systolic function was preserved. She did not require catheter based revascularization therapy. At the present time her cardiac rate and blood pressure appear to be stable. Her lungs are clear without obvious rales or rhonchi. Cardiovascular exam demonstrates a regular rhythm with a normal S1 and S2. Abdomen demonstrates positive bowel sounds being soft nontender with no obvious organomegaly. She has had no obvious peripheral pitting edema. Her cardiac rhythm appears to be sinus rhythm. She had one episode of brief intermittent PSVT potentially compatible with an ectopic atrial tachycardia. She had no obvious symptoms. Her ECG demonstrated sinus rhythm with ST segment changes potentially compatible with myocardial ischemia in the anterolateral distribution. This appears to be similar from her previous ECG from 03/23/2019. Her previous cardiac catheterization was reviewed and noted as above. At the present time the patient has a history of underlying CAD status post CABG. This is superimposed on history of underlying hyperlipidemia and hypothyroidism. This is now superimposed on history of an upper gastrointestinal bleeding process. At the present time the patient appears to be symptomatically hemodynamically stable from a cardiovascular standpoint. She will continue to be monitored. She will continue medical management for underlying CAD as deemed appropriate. At the moment medication such as aspirin and antiplatelet therapy are on hold. Her case was discussed with Dr. Harris who performed her EGD. Her aspirin/antiplatelet her therapy will remain on hold. However, he states that hopefully when she is on PPI therapy and without any recurrent symptoms or evidence of hemorrhage she will be able to reinitiate medical management in the future as deemed appropriate. Hopefully this will include resumption of aspirin therapy in the future. However it is unclear whether she needs to continue antiplatelet therapy with clopidogrel/Plavix as she denies any history of percutaneous intervention, TIA/CVA, etc. This may need to be reassessed by her primary fire sprinkler inspector in [place], [place]. Also, once she is able to resume medical therapy she should be able to resume her lipid-lowering therapy. Other cardiovascular medications can be used as needed. It was not felt she required additional cardiac diagnostic studies or therapeutic intervention at this time pending a change in her clinical course. She will need future outpatient continuity of care follow-up with her primary fire sprinkler inspector in [place], [place]. The above case was discussed and reviewed with the patient, her family members present, the [facility] staff, and Dr. Harris. This note was generated using a voice recognition system and there may be incorrect words, spelling or punctuation that were not noted when reviewing the office note prior to saving.
--- NOTE | 2019-08-09 12:43 | CASEMGMT ---
SW met with patient, introduced self and role at [facility]. Patient's was present. Patient was okay with SW talking about things in front of her even personal matters. SW told her SW wanted to talk with her about her ETOH use. SW asked if she was interested in any resources. Patient kind of laughed. Her said you can talk with her, but it will fall on deaf ears as she will continue to drink beer. They thanked SW for checking. Lynn POLANCO MSW
--- NOTE | 2019-08-09 14:11 | PN_ITS ---
<Edwar Morgan - Last Filed: 08/09/19 14:11> Patient Problems: Active and Suspected Problems GI bleed (Acute) Subjective: Patient tolerated the procedure well this morning. She is found to have pyloric ulcer. She has some mild throat discomfort from the procedure. She has no abdominal pain, nausea, vomiting. She also had ST depression overnight on telemetry. She does not however have any chest pain, tightness, heaviness, lightheadedness, dizziness, shortness of breath. She has no lower extremity edema. She states she had a heart catheterization about 3 months prior which was negative. This was confirmed with cath reports that we were able to obtain from her revenue cycle administrator. Dr. Padilla. - Physical Exam General: Alert, Oriented x3, Cooperative HEENT: Atraumatic, PERRLA, EOMI, Normocephalic Neck: Supple, No JVD, Negative Carotid Bruits Lungs: Clear to auscultation, Normal air movement Cardiovascular: Regular rate, Murmur - 3/6 systolic murmur best at LSB Abdomen: Bowel Sounds Present, Soft, Non Tender Extremities: No edema, Capillary Refill Less than 3 Seconds Skin: No rashes, No breakdown Musculoskeletal: No Tenderness to Palpation of Joints or Extremities Neurological: Cranial nerves II-XII grossly intact Psych/Mental Status: Normal Affect, Appropriate, Alert and oriented to time, place, person, mood and affect Vital Signs Temp Pulse Resp BP Pulse Ox 98.5 F 64 16 107/62 96 08/09/19 11:41 08/09/19 12:44 08/09/19 11:41 08/09/19 11:41 08/09/19 11:41 Oxygen Flow Rate (L/min) 2 Oxygen Delivery Method Room Air Weight: 198 lb 6.656 oz Body Mass Index (BMI) 31.1 Intake and Output for Last 24 Hours 08/07/19 08/08/19 08/09/19 23:59 23:59 23:59 Intake Total 462.5 / 702.5 2542.92 / 2542.92 Output Total 300 / 300 Balance 462.5 / 402.5 2242.92 / 2242.92 Microbiology Past 72 Hours 08/08/19 17:05 Stool Occult Blood (STEPHANIE) - Final Stool Occult Blood Positive Laboratory Tests Past 24 Hrs 08/08/19 08/08/1919 15:44 15:44 15:44 WBC 10.0 RBC 3.71 L Hgb 12.6 Hct 37.6 MCV 101.3 H MCH 34.0 H MCHC 33.5 RDW Std Deviation 49.2 H RDW Coeff of Jose Roberto 13.2 Plt Count 218 MPV 10.3 Immature Gran % (Auto) 0.300 Neut % (Auto) 64.2 Lymph % (Auto) 25.2 King % (Auto) 7.5 Eos % (Auto) 2.3 Baso % (Auto) 0.5 Absolute Neuts (auto) 6.4 Absolute Lymphs (auto) 2.52 Nucleated RBC % 0 PT 14.1 INR 1.1 APTT 25.2 Sodium 141 Potassium 3.7 Chloride 106 Carbon Dioxide 29.0 Anion Gap 6 BUN 21 H Creatinine 0.59 Estim Creat Clear Calc 53.09 Est GFR (MDRD) Af Amer 131 Est GFR (MDRD) Non-Af 109 BUN/Creatinine Ratio 35.8 H Glucose 118 H Calcium 8.1 L Magnesium Total Bilirubin 0.50 Direct Bilirubin 0.14 AST 19 ALT 24 Alkaline Phosphatase 79 Troponin I Total Protein 6.0 L Albumin 3.2 Globulin 2.8 TSH Blood Type Antibody Screen Crossmatch 08/08/19 08/08/19 08/08/19 15:44 17:23 17:25 WBC RBC Hgb Hct MCV MCH MCHC RDW Std Deviation RDW Coeff of Jose Roberto Plt Count MPV Immature Gran % (Auto) Neut % (Auto) Lymph % (Auto) King % (Auto) Eos % (Auto) Baso % (Auto) Absolute Neuts (auto) Absolute Lymphs (auto) Nucleated RBC % PT INR APTT Sodium Potassium Chloride Carbon Dioxide Anion Gap BUN Creatinine Estim Creat Clear Calc Est GFR (MDRD) Af Amer Est GFR (MDRD) Non-Af BUN/Creatinine Ratio Glucose Calcium Magnesium Total Bilirubin Direct Bilirubin AST ALT Alkaline Phosphatase Troponin I Total Protein Albumin Globulin TSH Blood Type Cancelled O POSITIVE Antibody Screen Cancelled NEGATIVE Crossmatch See Detail 08/08/19 08/09/19 08/09/19 19:34 03:18 03:18 WBC 6.3 RBC 3.13 L Hgb 11.8 L 10.4 L Hct 35.8 L 32.1 L MCV 102.6 H MCH 33.2 H MCHC 32.4 RDW Std Deviation 49.8 H RDW Coeff of Jose Roberto 13.3 Plt Count 192 MPV 9.8 Immature Gran % (Auto) 0.200 Neut % (Auto) 39.6 L Lymph % (Auto) 50.2 H King % (Auto) 7.9 Eos % (Auto) 1.6 Baso % (Auto) 0.5 Absolute Neuts (auto) 2.5 Absolute Lymphs (auto) 3.17 Nucleated RBC % 0 PT INR APTT Sodium 145 Potassium 3.9 Chloride 110 H Carbon Dioxide 29.0 Anion Gap 6 BUN 30 H Creatinine 0.59 Estim Creat Clear Calc 53.09 Est GFR (MDRD) Af Amer 130 Est GFR (MDRD) Non-Af 107 BUN/Creatinine Ratio 50.6 H Glucose 96 Calcium 7.6 L Magnesium Total Bilirubin Direct Bilirubin AST ALT Alkaline Phosphatase Troponin I Total Protein Albumin Globulin TSH Blood Type Antibody Screen Crossmatch 08/09/19 08/09/19 08/09/19 03:18 10:40 13:50 WBC RBC Hgb Pending Hct Pending MCV MCH MCHC RDW Std Deviation RDW Coeff of Jose Roberto Plt Count MPV Immature Gran % (Auto) Neut % (Auto) Lymph % (Auto) King % (Auto) Eos % (Auto) Baso % (Auto) Absolute Neuts (auto) Absolute Lymphs (auto) Nucleated RBC % PT INR APTT Sodium Potassium Chloride Carbon Dioxide Anion Gap BUN Creatinine Estim Creat Clear Calc Est GFR (MDRD) Af Amer Est GFR (MDRD) Non-Af BUN/Creatinine Ratio Glucose Calcium Magnesium 1.7 Total Bilirubin Direct Bilirubin AST ALT Alkaline Phosphatase Troponin I 0.018 < 0.015 Total Protein Albumin Globulin TSH 0.53 Blood Type Antibody Screen Crossmatch 08/09/19 13:50 WBC RBC Hgb Hct MCV MCH MCHC RDW Std Deviation RDW Coeff of Jose Roberto Plt Count MPV Immature Gran % (Auto) Neut % (Auto) Lymph % (Auto) King % (Auto) Eos % (Auto) Baso % (Auto) Absolute Neuts (auto) Absolute Lymphs (auto) Nucleated RBC % PT INR APTT Sodium Potassium Chloride Carbon Dioxide Anion Gap BUN Creatinine Estim Creat Clear Calc Est GFR (MDRD) Af Amer Est GFR (MDRD) Non-Af BUN/Creatinine Ratio Glucose Calcium Magnesium Total Bilirubin Direct Bilirubin AST ALT Alkaline Phosphatase Troponin I Pending Total Protein Albumin Globulin TSH Blood Type Antibody Screen Crossmatch Medical Necessity - Tobacco Use Smoking Status: Current every day smoker Tobacco Use: Cigarettes Assessment/Plan All Active Problems GI bleed (Acute) 1. Acute GI bleed presumed upper -Dr. Lawton performed EGD this morning, this revealed nonbleeding gastric ulcer with adherent clot, gastritis, small hiatal hernia, mildly severe reflux esophagitis, and duodenitis. She will need follow- up in his office in 1 week. Continue clear liquid diet and protonix drip. She needs to discontinue smoking and alcohol use. Trend H/H overnight. 2. CAD with prior CABG - ST depression and brief rapid Stachy on monitor overnight. EKG with ST and T wave changes, yesterdays EKG with biphasic T waves in V3,4,5. Pt without symptoms. Troponin negative. Cath from 3 months prior is negative. Cardiology consulted. No further changes/workup. TSH normal. Mag low - repleted. She may need to DC plavix or aspirin. She will need follow up with her own revenue cycle administrator. 3. Nicotine abuse - Smokes 1 ppd, for at least 40 years. She has been told she has COPD but does not think she has ever been formally diagnosed. Nicotine patch if desired, prn aerosols. 4. Alcohol abuse - drinks at least 6 beers per day. CIWA protocol, PRN ativan 5. Depression - lexapro 6. Hypothyroidism - synthroid 7. HLD - on statin, niacin, zetia DVT ppx: SCDs This patient was seen by Edwar Morgan PA-C under the supervision of Doctor Bonnie. <Robbie Nicole - Last Filed: 08/09/19 16:13> - Physical Exam Vital Signs Temp Pulse Resp BP Pulse Ox 98.8 F 65 16 120/46 L 97 08/09/19 14:54 08/09/19 14:54 08/09/19 14:54 08/09/19 14:54 08/09/19 14:54 Oxygen Flow Rate (L/min) 2 Oxygen Delivery Method Room Air Weight: 90 kg Body Mass Index (BMI) 31.1 Intake and Output for Last 24 Hours 08/07/19 08/08/19 08/09/19 23:59 23:59 23:59 Intake Total 462.5 / 702.5 2646.92 / 2646.92 Output Total 300 / 300 Balance 462.5 / 402.5 2346.92 / 2346.92 Microbiology Past 72 Hours 08/08/19 17:05 Stool Occult Blood (STEPHANIE) - Final Stool Occult Blood Positive Laboratory Tests Past 24 Hrs 08/08/19 08/08/19 08/08/19 15:44 15:44 15:44 WBC 10.0 RBC 3.71 L Hgb 12.6 Hct 37.6 MCV 101.3 H MCH 34.0 H MCHC 33.5 RDW Std Deviation 49.2 H RDW Coeff of Jose Roberto 13.2 Plt Count 218 MPV 10.3 Immature Gran % (Auto) 0.300 Neut % (Auto) 64.2 Lymph % (Auto) 25.2 King % (Auto) 7.5 Eos % (Auto) 2.3 Baso % (Auto) 0.5 Absolute Neuts (auto) 6.4 Absolute Lymphs (auto) 2.52 Nucleated RBC % 0 PT 14.1 INR 1.1 APTT 25.2 Sodium 141 Potassium 3.7 Chloride 106 Carbon Dioxide 29.0 Anion Gap 6 BUN 21 H Creatinine 0.59 Estim Creat Clear Calc 53.09 Est GFR (MDRD) Af Amer 131 Est GFR (MDRD) Non-Af 109 BUN/Creatinine Ratio 35.8 H Glucose 118 H Calcium 8.1 L Magnesium Total Bilirubin 0.50 Direct Bilirubin 0.14 AST 19 ALT 24 Alkaline Phosphatase 79 Troponin I Total Protein 6.0 L Albumin 3.2 Globulin 2.8 TSH Blood Type Antibody Screen Crossmatch 08/08/19 08/08/19 08/08/19 15:44 17:23 17:25 WBC RBC Hgb Hct MCV MCH MCHC RDW Std Deviation RDW Coeff of Jose Roberto Plt Count MPV Immature Gran % (Auto) Neut % (Auto) Lymph % (Auto) King % (Auto) Eos % (Auto) Baso % (Auto) Absolute Neuts (auto) Absolute Lymphs (auto) Nucleated RBC % PT INR APTT Sodium Potassium Chloride Carbon Dioxide Anion Gap BUN Creatinine Estim Creat Clear Calc Est GFR (MDRD) Af Amer Est GFR (MDRD) Non-Af BUN/Creatinine Ratio Glucose Calcium Magnesium Total Bilirubin Direct Bilirubin AST ALT Alkaline Phosphatase Troponin I Total Protein Albumin Globulin TSH Blood Type Cancelled O POSITIVE Antibody Screen Cancelled NEGATIVE Crossmatch See Detail 08/08/19 08/09/19 08/09/19 19:34 03:18 03:18 WBC 6.3 RBC 3.13 L Hgb 11.8 L 10.4 L Hct 35.8 L 32.1 L MCV 102.6 H MCH 33.2 H MCHC 32.4 RDW Std Deviation 49.8 H RDW Coeff of Jose Roberto 13.3 Plt Count 192 MPV 9.8 Immature Gran % (Auto) 0.200 Neut % (Auto) 39.6 L Lymph % (Auto) 50.2 H King % (Auto) 7.9 Eos % (Auto) 1.6 Baso % (Auto) 0.5 Absolute Neuts (auto) 2.5 Absolute Lymphs (auto) 3.17 Nucleated RBC % 0 PT INR APTT Sodium 145 Potassium 3.9 Chloride 110 H Carbon Dioxide 29.0 Anion Gap 6 BUN 30 H Creatinine 0.59 Estim Creat Clear Calc 53.09 Est GFR (MDRD) Af Amer 130 Est GFR (MDRD) Non-Af 107 BUN/Creatinine Ratio 50.6 H Glucose 96 Calcium 7.6 L Magnesium Total Bilirubin Direct Bilirubin AST ALT Alkaline Phosphatase Troponin I Total Protein Albumin Globulin TSH Blood Type Antibody Screen Crossmatch 08/09/19 08/09/19 08/09/19 03:18 10:40 13:50 WBC RBC Hgb 8.8 L Hct 26.9 L MCV MCH MCHC RDW Std Deviation RDW Coeff of Jose Roberto Plt Count MPV Immature Gran % (Auto) Neut % (Auto) Lymph % (Auto) King % (Auto) Eos % (Auto) Baso % (Auto) Absolute Neuts (auto) Absolute Lymphs (auto) Nucleated RBC % PT INR APTT Sodium Potassium Chloride Carbon Dioxide Anion Gap BUN Creatinine Estim Creat Clear Calc Est GFR (MDRD) Af Amer Est GFR (MDRD) Non-Af BUN/Creatinine Ratio Glucose Calcium Magnesium 1.7 Total Bilirubin Direct Bilirubin AST ALT Alkaline Phosphatase Troponin I 0.018 < 0.015 Total Protein Albumin Globulin TSH 0.53 Blood Type Antibody Screen Crossmatch 08/09/19 13:50 WBC RBC Hgb Hct MCV MCH MCHC RDW Std Deviation RDW Coeff of Jose Roberto Plt Count MPV Immature Gran % (Auto) Neut % (Auto) Lymph % (Auto) King % (Auto) Eos % (Auto) Baso % (Auto) Absolute Neuts (auto) Absolute Lymphs (auto) Nucleated RBC % PT INR APTT Sodium Potassium Chloride Carbon Dioxide Anion Gap BUN Creatinine Estim Creat Clear Calc Est GFR (MDRD) Af Amer Est GFR (MDRD) Non-Af BUN/Creatinine Ratio Glucose Calcium Magnesium Total Bilirubin Direct Bilirubin AST ALT Alkaline Phosphatase Troponin I < 0.015 Total Protein Albumin Globulin TSH Blood Type Antibody Screen Crossmatch Assessment/Plan This patient was seen in conjunction with Edwar Morgan PA-C . I have independently interviewed and examined the patient and reviewed pertinent historical, laboratory, and other data. Please refer to Edwar Morgan PA-C note for details of this patient's presentation, findings, and recommendations. I have reviewed Edwar Morgan PA-C note and concur with documented findings. In brief, patient is a 69-year-old lady admitted with suspected upper GI bleed. Consult was placed to Dr. Rayo general surgery who did perform endoscopy on 08/09/2019 which demonstrated nonbleeding gastric ulcer with adherent clots mild gastritis small hiatal hernia with evidence of severe reflux esophagitis as well as duodenitis Physical Examination: GENERAL: cooperative HEENT: Atraumatic; EYES; Anicteric, NECK; supple, normal thyroid, RESPIRATORY: Diminished to auscultation CARDIOVASCULAR: Regular S1 S2, GI: soft, non-tender, normoactive bowel sounds, : No Renal angle tenderness; NEURO: Awake; no lateralizing signs. SKIN: No Rash PSYCH; Normal affect Assessment: 1. Upper GI bleed secondary to gastric ulcer 2. EKG changes 3. CAD with previous CABG 4. GERD 5. Tobacco dependence 6. Depression 7. Hypothyroidism 8. Dyslipidemia Recommendations: 1. I have discussed the results of my overview and impressions with the patient 2. Options for management were reviewed Code Visit Inpatient E&M: [id number] Subs Hosp L2
[2019-08-09 14:12] LABS: Hematocrit 26.9 % (37-47); Hemoglobin 8.8 g/dL (12.0-15.0)
[2019-08-09] MEDS: 0.9% Normal Saline 1,000 ML 125 ML IV (18:00)
[2019-08-09] MEDS: Acetaminophen 325 MG Tablet 650 MG PO (18:02)
[2019-08-10] MEDS: Acetaminophen 325 MG Tablet 650 MG PO ×2 (00:05→09:25)
[2019-08-10] MEDS: 0.9% Normal Saline 1,000 ML 125 ML IV ×2 (01:23→08:31)
[2019-08-10 02:40] VITALS: BP 100/63; PULSE 67; RESP 18; TEMP 36.6; O2SAT 92
[2019-08-10 03:00] VITALS: PULSE 63
[2019-08-10] MEDS: Levothyroxine 100 MCG Tablet PO (05:33)
[2019-08-10 05:41] LABS: Hematocrit 25.4 % (37-47); Hemoglobin 8.3 g/dL (12.0-15.0); Mean Corp Hgb Conc 32.7 g/dL (32-36); Mean Corpuscular Hgb 33.6 pg (27.0-32.0); Mean Corpuscular Volume 102.8 fL (81-99); Mean Platelet Vol. 10.2 fl (6.2-12.0); Platelet Count 144 K/mm3 (150-450); RBC Distribution Width CV 13.5 % (11.6-14.6); RBC Distribution Width SD 51.3 fl (35.1-43.9); Red Blood Count 2.47 M/mm3 (4.2-5.4); White Blood Count 4.6 K/mm3 (4.4-11.0)
[2019-08-10 05:53] LABS: Anion Gap 5 (5-15); BUN 9 mg/dL (7-18); BUN/Creat Ratio 18.5 RATIO (10-20); Calcium,Total 7.7 mg/dL (8.5-10.1); Chloride 114 mmol/L (98-107); Creatinine, Serum 0.49 mg/dL (0.55-1.02); EST Glomerular Filtration Rate 135 mL/min (>60); Est Glom Filt Rate - Afr Amer 163 mL/min (>60); Estimated Creatinine Clearance 53.09 ml/min; Glucose 91 mg/dL (74-106); Potassium 3.8 mmol/L (3.5-5.1); Sodium Level 147 mmol/L (136-145)
[2019-08-10 06:44] VITALS: PULSE 70
[2019-08-10 07:22] VITALS: O2SAT 96
[2019-08-10 08:25] VITALS: BP 119/54; PULSE 78; RESP 18; TEMP 36.8; O2SAT 94
[2019-08-10 08:27] VITALS: BP 115/61; BP 119/54; BP 120/57; PULSE 79; PULSE 84
--- NOTE | 2019-08-10 09:25 | PN.CARD_ITS ---
<Cam Lynne - Last Filed: 08/10/19 09:25> Subjectve: Patient seen and evaluated. She denies any new symptoms of chest pain, shortness of breath, or lower extremity edema. Objective: Vital Signs Temp Pulse Resp BP Pulse Ox 98.2 F 79 18 119/54 L 94 08/10/19 08:25 08/10/19 08:27 08/10/19 08:25 08/10/19 08:27 08/10/19 08:25 Oxygen Flow Rate (L/min) 2 Oxygen Delivery Method Room Air Weight: 198 lb 6.656 oz Body Mass Index (BMI) 31.1 Orthostatic Vital Signs Start: 08/10/19 08:22 Freq: q24h Status: Active Protocol: Activity Type Activity Date Activity User E-Sign Co-Sign Detail Recorded Client Recorded Date Recorded By Document 08/10/19 08:27 KS [id number] 08/10/19 08:30 KS 08/10/19 08:27 Orthostatic Vitals Standing -Blood Pressure (90/60-120/80) 120/57 L -Extremity Use Right Arm -Pulse Rate (60-100) 84 Sitting -Blood Pressure (90/60-120/80) 115/61 -Extremity Use Right Arm -Pulse Rate (60-100) 84 Lying -Blood Pressure (90/60-120/80) 119/54 L -Extremity Use Right Arm -Pulse Rate (60-100) 79 Intake and Output for Last 24 Hours 08/08/19 08/09/19 08/10/19 23:59 23:59 23:59 Intake Total 462.5 / 702.5 3529.92 / 3529.92 Output Total 300 / 300 Balance 462.5 / 402.5 3229.92 / 3229.92 General: Healthy Appearing, Awake, Alert, Oriented x 3, Cooperative HEENT: Atraumatic Oral: Moist Mucosa Neck: Supple, No JVD Lungs: Clear to auscultation Cardiovascular: Regular Rhythm, Normal S1, Normal S2, No Rubs, No Gallops Murmur Murmur: Grade 2/6, Mid Systolic, RLSB Vascular: No Carotid Bruits Abdomen: Bowel Sounds Present Extremities: No Cyanosis, No Clubbing, No edema, Normal Capillary Refill Musculoskeletal: No Erythema Skin: No Rashes Neurological: No Focal Motor or Sensory Deficit Psych/Mental Status: Appropriate, Normal Affect 08/09/19 10:40: Troponin I < 0.015 08/09/19 13:50: Hgb 8.8 L, Hct 26.9 L 08/09/19 13:50: Troponin I < 0.015 08/09/19 16:18: Troponin I < 0.015 08/10/19 04:55: WBC 4.6, RBC 2.47 L, Hgb 8.3 L, Hct 25.4 L, MCV 102.8 H, MCH 33.6 H, MCHC 32.7, Plt Count 144 L, MPV 10.2 08/10/19 04:55: Sodium 147 H, Potassium 3.8, Chloride 114 H, Carbon Dioxide 28.0, Anion Gap 5, BUN 9, Creatinine 0.49 L, Est GFR (MDRD) Af Amer 163, Est GFR (MDRD) Non-Af 135, BUN/Creatinine Ratio 18.5, Glucose 91, Calcium 7.7 L Rhythm: EKG: ECHO: Stress Test: Cardiac Cath: 03/23/2019 Impressions and recommendations: 1. Normal left ventricular systolic function with estimated LV ejection fraction of 65%. 2. Normal left ventricular end-diastolic pressure. 3. Patent left internal mammary graft to the mid left anterior descending. 4. Patent right internal mammary graft to the distal right coronary artery. 5. Patent saphenous vein graft to the obtuse marginal branch of the circumflex. 6. Triple-vessel coronary artery disease. PCI: CT Surgery: Holter monitor: EPS: PPM: CXR: Chest CT Scan: Medical Necessity - Tobacco Use Smoking Status: Current every day smoker Tobacco Use: Cigarettes Assessment/Plan 1. Atherosclerotic Coronary Artery Disease Patient has a history of coronary artery bypass in 1990. She underwent a recent heart catheterization on 03/23/2019 at [facility] with Dr. Padilla. Her report as noted above showed patent bypass grafts and an ejection fraction of 65%. Patient denies any chest pain or shortness of breath prior to admission or currently. Her EKG does reveal T wave inversion which appears similar to prior EKG on 03/23/2019. She does have a telemetry strip that shows ST depression and lead II. However, her 12- lead EKG does not reveal ST depression. Given her lack of cardiac symptoms, negative troponin, and recent heart catheterization showing bypass grafts, medical management is recommended. Ideally, this would include such medications as beta-blockers or TIM inhibitor/ARB's. Patient states that she has trialed such medication and has had intolerance to them such as nausea, bradycardia, or hypertension. She has recently tried Imdur and noted nausea. Given her recent diagnosis of upper GI bleed and pyloric ulcer it is reasonable to consider discontinuing Plavix and/or Aspirin given that she has not had any previous stenting. These medications are currently on hold. This ultimate decision to resume either aspirin or Plavix can be decided by primary fraternity adviser and primary care physician. Given that her recent heart catheterization showed patent bypass grafts and new peptic ulcer it is reasonable to continue to hold both and monitor. Ideally, she should discontinue both alcohol and smoking to help prevent recurring ulcer. 2. Hyperlipidemia She will continue current cholesterol-lowering medications and follow with primary fraternity adviser on an outpatient basis. 3. Valvular heart disease The exact the details of her valvular heart disease are unknown. She does acknowledge a recent echocardiogram. The results are not available for review. Based on exam, this appears stable. Given her lack of symptoms, she does not need an echocardiogram to evaluate further. Patient's case was discussed further with Dr. Henderson who will also evaluate the patient personally. Thank you for allowing us to participate in the patients plan of care, if you have any questions please do not hesitate to call. This note was generated using a voice recognition system and there may be incorrect words, spelling or punctuation that were not noted when reviewing the office note prior to saving. <Reinier Henderson - Last Filed: 08/10/19 13:58> Objective: Vital Signs Temp Pulse Resp BP Pulse Ox 98.2 F 79 18 119/54 L 94 08/10/19 08:25 08/10/19 08:27 08/10/19 08:25 08/10/19 08:27 08/10/19 08:25 Oxygen Flow Rate (L/min) 2 Oxygen Delivery Method Room Air Weight: 198 lb 6.656 oz Body Mass Index (BMI) 31.1 Orthostatic Vital Signs Start: 08/10/19 08:22 Freq: q24h Status: Active Protocol: Activity Type Activity Date Activity User E-Sign Co-Sign Detail Recorded Client Recorded Date Recorded By Document 08/10/19 08:27 YARA [id number] 08/10/19 08:30 NH 08/10/19 08:27 Orthostatic Vitals Standing -Blood Pressure (90/60-120/80) 120/57 L -Extremity Use Right Arm -Pulse Rate (60-100) 84 Sitting -Blood Pressure (90/60-120/80) 115/61 -Extremity Use Right Arm -Pulse Rate (60-100) 84 Lying -Blood Pressure (90/60-120/80) 119/54 L -Extremity Use Right Arm -Pulse Rate (60-100) 79 Intake and Output for Last 24 Hours 08/08/19 08/09/19 08/10/19 23:59 23:59 23:59 Intake Total 462.5 / 702.5 3529.92 / 3529.92 2322. / 232. Output Total 300 / 300 Balance 462.5 / 402.5 3229.92 / 3229.92 2322.26 / 2322.26 08/09/19 13:50: Hgb 8.8 L, Hct 26.9 L 08/09/19 13:50: Troponin I < 0.015 08/09/19 16:18: Troponin I < 0.015 08/10/19 04:55: WBC 4.6, RBC 2.47 L, Hgb 8.3 L, Hct 25.4 L, MCV 102.8 H, MCH 33.6 H, MCHC 32.7, Plt Count 144 L, MPV 10.2 08/10/19 04:55: Sodium 147 H, Potassium 3.8, Chloride 114 H, Carbon Dioxide 28.0, Anion Gap 5, BUN 9, Creatinine 0.49 L, Est GFR (MDRD) Af Amer 163, Est GFR (MDRD) Non-Af 135, BUN/Creatinine Ratio 18.5, Glucose 91, Calcium 7.7 L Rhythm: EKG: ECHO: Stress Test: Cardiac Cath: PCI: CT Surgery: Holter monitor: EPS: PPM: CXR: Chest CT Scan: Assessment/Plan Addendum: Date: 08-10-19 The patient was previously independently interviewed and examined. The patient stated that she resumed a diet. After eating half an omelette earlier this morning she felt somewhat nauseated. However she had no acute ches t or abdominal discomfort. She had no change in her respiratory status. Her vital signs have been noted. Her lungs demonstrate evidence of bilateral inspiratory/expiratory wheezing. Her cardiovascular exam demonstrated a regular rhythm with a normal S1 and S2. She is have an underlying cardiac murmur of approximately 2-3/6 somewhat harsh systolic murmur at the lower left sternal border rating toward the LVOT in the apex. Her abdomen appear to demonstrate positive bowel sounds and appeared to be soft and nontender. She had no ongoing lower extremity edema. Her cardiac rhythm has remained sinus rhythm. At the present time she appears to have no symptoms of an underlying acute coronary syndrome. She will continue risk factor modification medical therapy for her history of CAD status post CABG as deemed appropriate. As previously noted her case has been discussed with Dr. Harris. Per his recommendations she can restart either aspirin, clopidogrel/Plavix, or both-when deemed appropriate. She will need continued future outpatient cardiovascular follow-up with her primary fraternity adviser in [place], [place]. She does have a cardiac murmur. She states she has been following with her cardiac team in [place], [place] for such along with her history of CAD status post CABG. She will continue risk factor evaluation care for issues such as hyperlipidemia in the interim. She will need continued follow-up of her concerns of gastrointestinal bleeding, etc., as per recommendations by internal medicine. The patient's case has been discussed with the patient, her family members present, and Dr. Nicole. Patient's case was also discussed with Cam Lynne CNP. This note was generated using a voice recognition system and there may be incorrect words, spelling or punctuation that were not noted when reviewing the office note prior to saving.
--- NOTE | 2019-08-10 11:53 | PCM.DC ---
- Discharge Diagnoses Current Active Problems: Current Active and Chronic Problems Alcohol abuse (Chronic) GI bleed (Acute) Hypothyroidism (Chronic) Hyperlipidemia (Chronic) Status post coronary artery bypass graft (Chronic) Coronary artery disease (Chronic) You will use the following diet at home:: Cardiac, Other - No alcohol Your food should be the consistency of: Regular Your liquids should be the consistency of: Regular/Thin Discharge Activity: Return to Normal Activity Additional Instructions: Minimize alcohol and tobacco use. Allergies/Adverse Reactions: Allergies Penicillins [PCN] Allergy (Verified 08/08/19 15:42) Unknown Medications to take at Discharge Albuterol Sulfate [Albuterol Sulfate Hfa] 2 puff INHALATION Q4H PRN PRN 08/08/19 Escitalopram Oxalate [Lexapro] 10 mg PO DAILY 08/08/19 Ezetimibe [Zetia] 10 mg PO DAILY 08/08/19 Levothyroxine [Synthroid] 100 mcg PO DAILY 08/08/19 Niacin [Niacin ER] 1,000 mg PO DAILY 08/08/19 Rosuvastatin Calcium [Crestor] 40 mg PO DAILY 08/08/19 Pantoprazole Sodium [Protonix] 40 mg PO BID #60 tab 08/10/19 The following prescriptions were given: Pantoprazole Sodium [Protonix] 40 mg PO BID #60 tab Transmission Status: Pending to [facility]/pharmacy #[id number] Primary Care Physician: Gaby German NP-C [Primary Care Provider] - Please follow up with your Primary Care Physician in: 1-2 weeks Test Results: Test results from this visit will be discussed in further detail at your follow-up appointment, if applicable. Please Follow Up With: Wilner Harris MD When: 1 week Please Follow Up With: Your heel stainer When: 1-2 weeks Proposed Discharge Date: 08/10/19
--- NOTE | 2019-08-10 12:39 | PHA.DC.MC ---
Pharmacy Service has performed discharge medication reconciliation and counseling for this patient. 1. PANTOPRAZOLE 40MG PO BID Home Medications Albuterol Sulfate [Albuterol Sulfate Hfa] 2 puff INHALATION Q4H PRN PRN 08/08/19 Escitalopram Oxalate [Lexapro] 10 mg PO DAILY 08/08/19 Ezetimibe [Zetia] 10 mg PO DAILY 08/08/19 Levothyroxine [Synthroid] 100 mcg PO DAILY 08/08/19 Niacin [Niacin ER] 1,000 mg PO DAILY 08/08/19 Rosuvastatin Calcium [Crestor] 40 mg PO DAILY 08/08/19 Pantoprazole Sodium [Protonix] 40 mg PO BID #60 tab 08/10/19 The patient's discharge medication list was reviewed for discrepancies and discrepancies were resolved. The patient was counseled on the following discharge medications and changes in medications for homegoing were reviewed. The Reason for Use, instructions for use, and potential side effects were reviewed for all new medications. The patient's questions regarding all of their medications were answered. The patient was able to verbally demonstrate an understanding of their discharge medications.
--- NOTE | 2019-08-10 13:14 | PCM.DC.SUM ---
<Edwar Morgan - Last Filed: 08/10/19 13:14> Discharge Date and Diagnosis - Problem List Patient Problems: Active and Suspected Problems GI bleed (Acute) Date of Admission: 08/08/19 Date of Discharge: 08/10/19 - Primary Discharge Diagnosis Active and Suspected Problems Acute blood loss anemia 2/2 GI bleed (Acute), upper Gastric ulcer Gastritis Duodenitis Reflux Esophagitis Small hiatal hernia CAD prior CABG Nicotine abuse Alcohol abuse Hypothyroidism Depression HLD - Secondary Discharge Diagnosis Chronic Problems Alcohol abuse (Chronic) Hypothyroidism (Chronic) Hyperlipidemia (Chronic) Status post coronary artery bypass graft (Chronic) Coronary artery disease (Chronic) Hospital Course and Treatment Consults: Kimberly - Gen Surgery [place] - Cardiology Operations: None Procedures: EGD Summary of Care Provided: Hospital Course: The patient is a 69 year old F with pmhx of CAD with prior CABG, ongoing heavy smoker, alcohol abuse, hypothyroid, depression, who presented to the ER with c/o coffee ground emesis and black stools that began the day of presentation. Her initial Hgb was normal, stool occult blood was positive. She was placed on IV protonix and admitted to the PCU on tele. EKG had nonspecific ST changes. She was taken for an EGD and a gastric ulcer with a clot was found as well as reflux esophagitis, duodenitis, gastritis. Blood counts stabilized and she remained asymptomatic. She had ST depression on the monitor and nonspecific ST changes on EKG. This was concerning given her ongoing nicotine abuse and alcohol abuse, and that she needed to be off of aspirin and plavix with the bleed. Cardiology was consulted. She had a recent heart cath which was without issue, in March of this year. She had no symptoms of ischemia. Cardiology did not feel further workup or medication change was warranted. She will need to hold aspirin and plavix at least until she follows up with Dr. Harris in 1 week. Her audio visual aids director is in [place] with [facility], she has been instructed to follow up with them for further instruction with regards to aspirin and plavix (preferably 2 weeks). She needs complete smoking and alcohol cessation. She will need to follow up with her PCP in 1-2 weeks. This patient was seen by Edwar Morgan PA-C under the supervision of Dr. Nicole. [] Patient Problems: Active and Suspected Problems GI bleed (Acute) - Physical Exam General: Alert, Oriented x3, Cooperative HEENT: Atraumatic, PERRLA, EOMI, Normocephalic Neck: Supple, No JVD, Negative Carotid Bruits Lungs: Clear to auscultation, Normal air movement Cardiovascular: Regular rate, No murmurs Abdomen: Bowel Sounds Present, Soft, Non Tender Extremities: No edema, Capillary Refill Less than 3 Seconds Skin: No rashes, No breakdown Musculoskeletal: No Tenderness to Palpation of Joints or Extremities Neurological: Cranial nerves II-XII grossly intact Psych/Mental Status: Normal Affect, Appropriate Vital Signs Temp Pulse Resp BP Pulse Ox 98.2 F 79 18 119/54 L 94 08/10/19 08:25 08/10/19 08:27 08/10/19 08:25 08/10/19 08:27 08/10/19 08:25 Oxygen Flow Rate (L/min) 2 Oxygen Delivery Method Room Air Weight: 198 lb 6.656 oz Body Mass Index (BMI) 31.1 Orthostatic Vital Signs Start: 08/10/19 08:22 Freq: q24h Status: Active Protocol: Activity Type Activity Date Activity User E-Sign Co-Sign Detail Recorded Client Recorded Date Recorded By Document 08/10/19 08:27 KS [id number] 08/10/19 08:30 KS 08/10/19 08:27 Orthostatic Vitals Standing -Blood Pressure (90/60-120/80) 120/57 L -Extremity Use Right Arm -Pulse Rate (60-100) 84 Sitting -Blood Pressure (90/60-120/80) 115/61 -Extremity Use Right Arm -Pulse Rate (60-100) 84 Lying -Blood Pressure (90/60-120/80) 119/54 L -Extremity Use Right Arm -Pulse Rate (60-100) 79 Intake and Output for Last 24 Hours 08/08/19 08/09/19 08/10/19 23:59 23:59 23:59 Intake Total 462.5 / 702.5 3529.92 / 3529.92 2321. / 2321. Output Total 300 / 300 Balance 462.5 / 402.5 3229.92 / 3229.92 232. / 2321. Microbiology Past 72 Hours 08/08/19 17:05 Stool Occult Blood (STEPHANIE) - Final Stool Occult Blood Positive Laboratory Tests Past 24 Hrs 08/09/19 08/09/19 08/09/19 13:50 13:50 16:18 WBC RBC Hgb 8.8 L Hct 26.9 L MCV MCH MCHC RDW Std Deviation RDW Coeff of Jose Roberto Plt Count MPV Sodium Potassium Chloride Carbon Dioxide Anion Gap BUN Creatinine Estim Creat Clear Calc Est GFR (MDRD) Af Amer Est GFR (MDRD) Non-Af BUN/Creatinine Ratio Glucose Calcium Troponin I < 0.015 < 0.015 08/10/19 08/10/19 04:55 04:55 WBC 4.6 RBC 2.47 L Hgb 8.3 L Hct 25.4 L MCV 102.8 H MCH 33.6 H MCHC 32.7 RDW Std Deviation 51.3 H RDW Coeff of Jose Roberto 13.5 Plt Count 144 L MPV 10.2 Sodium 147 H Potassium 3.8 Chloride 114 H Carbon Dioxide 28.0 Anion Gap 5 BUN 9 Creatinine 0.49 L Estim Creat Clear Calc 53.09 Est GFR (MDRD) Af Amer 163 Est GFR (MDRD) Non-Af 135 BUN/Creatinine Ratio 18.5 Glucose 91 Calcium 7.7 L Troponin I Discharge Diet: Low fat/ Low Cholesterol, 2000 mg Sodium Diet, - - no alcohol Discharge Activity: Return to Normal Activity Home Medications: Medications to take at Discharge Albuterol Sulfate [Albuterol Sulfate Hfa] 2 puff INHALATION Q4H PRN PRN 08/08/19 Escitalopram Oxalate [Lexapro] 10 mg PO DAILY 08/08/19 Ezetimibe [Zetia] 10 mg PO DAILY 08/08/19 Levothyroxine [Synthroid] 100 mcg PO DAILY 08/08/19 Niacin [Niacin ER] 1,000 mg PO DAILY 08/08/19 Rosuvastatin Calcium [Crestor] 40 mg PO DAILY 08/08/19 Pantoprazole Sodium [Protonix] 40 mg PO BID #60 tab 08/10/19 Following Prescrptions Were Given to Patient: Pantoprazole Sodium [Protonix] 40 mg PO BID #60 tab Transmission Status: Received by [facility]/pharmacy #[id number] Primary Care Physician: Gaby German, HARLEYC [Primary Care Provider] - Please follow up with your Primary Care Physician in: 1-2 weeks Please Follow Up With: Wilner Harris MD When: 1 week Please Follow Up With: Your audio visual aids director When: 1-2 weeks Disposition: Home Minutes spent on discharge:: 35 Patient Condition:: Stable Medical Necessity - Tobacco Use Smoking Status: Current every day smoker Tobacco Use: Cigarettes Meaningful Use Info Meaningful Use Diagnoses (Choose all that apply): None applicable <Robbie Nicole - Last Filed: 08/10/19 14:02> Discharge Date and Diagnosis - Primary Discharge Diagnosis Active and Suspected Problems GI bleed (Acute) - Secondary Discharge Diagnosis Chronic Problems Alcohol abuse (Chronic) Hypothyroidism (Chronic) Hyperlipidemia (Chronic) Status post coronary artery bypass graft (Chronic) Coronary artery disease (Chronic) Hospital Course and Treatment Summary of Care Provided: This patient was seen in conjunction with Edwar Morgan PA-C . I have independently interviewed and examined the patient and reviewed pertinent historical, laboratory, and other data. Please refer to dEwar Morgan PA-C note for details of this patient's presentation, findings, and recommendations. I have reviewed Edwar Morgan PA-C note and concur with documented findings. In brief, patient is a 69-year-old lady admitted with suspected upper GI bleed. Consult was placed to Dr. Rayo general surgery who did perform endoscopy on 08/09/2019 which demonstrated nonbleeding gastric ulcer with adherent clots mild gastritis small hiatal hernia with evidence of severe reflux esophagitis as well as duodenitis Assessment: 1. Upper GI bleed secondary to gastric ulcer 2. EKG changes 3. CAD with previous CABG 4. GERD 5. Tobacco dependence 6. Depression 7. Hypothyroidism 8. Dyslipidemia Hospital course: As documented above by Edwar Morgan PA-C - Physical Exam Vital Signs Temp Pulse Resp BP Pulse Ox 98.2 F 79 18 119/54 L 94 08/10/19 08:25 08/10/19 08:27 08/10/19 08:25 08/10/19 08:27 08/10/19 08:25 Oxygen Flow Rate (L/min) 2 Oxygen Delivery Method Room Air Weight: 90 kg Body Mass Index (BMI) 31.1 Orthostatic Vital Signs Start: 08/10/19 08:22 Freq: q24h Status: Active Protocol: Activity Type Activity Date Activity User E-Sign Co-Sign Detail Recorded Client Recorded Date Recorded By Document 08/10/19 08:27 [place] [id number] 08/10/19 08:30 [place] 08/10/19 08:27 Orthostatic Vitals Standing -Blood Pressure (90/60-120/80) 120/57 L -Extremity Use Right Arm -Pulse Rate (60-100) 84 Sitting -Blood Pressure (90/60-120/80) 115/61 -Extremity Use Right Arm -Pulse Rate (60-100) 84 Lying -Blood Pressure (90/60-120/80) 119/54 L -Extremity Use Right Arm -Pulse Rate (60-100) 79 Intake and Output for Last 24 Hours 08/08/19 08/09/19 08/10/19 23:59 23:59 23:59 Intake Total 462.5 / 702.5 3529.92 / 3529.92 2322.26 / 2322.26 Output Total 300 / 300 Balance 462.5 / 402.5 3229.92 / 3229.92 2322.26 / 2322.26 Microbiology Past 72 Hours 08/08/19 17:05 Stool Occult Blood (STEPHANIE) - Final Stool Occult Blood Positive Laboratory Tests Past 24 Hrs 08/09/19 08/09/19 08/09/19 13:50 13:50 16:18 WBC RBC Hgb 8.8 L Hct 26.9 L MCV MCH MCHC RDW Std Deviation RDW Coeff of Jose Roberto Plt Count MPV Sodium Potassium Chloride Carbon Dioxide Anion Gap BUN Creatinine Estim Creat Clear Calc Est GFR (MDRD) Af Amer Est GFR (MDRD) Non-Af BUN/Creatinine Ratio Glucose Calcium Troponin I < 0.015 < 0.015 08/10/19 08/10/19 04:55 04:55 WBC 4.6 RBC 2.47 L Hgb 8.3 L Hct 25.4 L MCV 102.8 H MCH 33.6 H MCHC 32.7 RDW Std Deviation 51.3 H RDW Coeff of Jose Roberto 13.5 Plt Count 144 L MPV 10.2 Sodium 147 H Potassium 3.8 Chloride 114 H Carbon Dioxide 28.0 Anion Gap 5 BUN 9 Creatinine 0.49 L Estim Creat Clear Calc 53.09 Est GFR (MDRD) Af Amer 163 Est GFR (MDRD) Non-Af 135 BUN/Creatinine Ratio 18.5 Glucose 91 Calcium 7.7 L Troponin I Code Visit Inpatient E&M: 77006 Disch Hosp
--- NOTE | 2019-08-10 13:40 | PCM.PN.SRG ---
Patient Problems: Active and Suspected Problems GI bleed (Acute) Subjective: no complaints - Physical Exam Neck: Supple, No JVD, Negative Carotid Bruits Lungs: Clear to auscultation, Normal air movement Cardiovascular: Regular rate, No murmurs Abdomen: Bowel Sounds Present, Soft, Non Tender Vital Signs Temp Pulse Resp BP Pulse Ox 98.2 F 79 18 119/54 L 94 08/10/19 08:25 08/10/19 08:27 08/10/19 08:25 08/10/19 08:27 08/10/19 08:25 Oxygen Flow Rate (L/min) 2 Oxygen Delivery Method Room Air Weight: 90 kg Body Mass Index (BMI) 31.1 Orthostatic Vital Signs Start: 08/10/19 08:22 Freq: q24h Status: Active Protocol: Activity Type Activity Date Activity User E-Sign Co-Sign Detail Recorded Client Recorded Date Recorded By Document 08/10/19 08:27 KS [id number] 08/10/19 08:30 KS 08/10/19 08:27 Orthostatic Vitals Standing -Blood Pressure (90/60-120/80) 120/57 L -Extremity Use Right Arm -Pulse Rate (60-100) 84 Sitting -Blood Pressure (90/60-120/80) 115/61 -Extremity Use Right Arm -Pulse Rate (60-100) 84 Lying -Blood Pressure (90/60-120/80) 119/54 L -Extremity Use Right Arm -Pulse Rate (60-100) 79 Intake and Output for Last 24 Hours 08/08/19 08/09/19 08/10/19 23:59 23:59 23:59 Intake Total 462.5 / 702.5 3529.92 / 3529.92 2322. / 2322.26 Output Total 300 / 300 Balance 462.5 / 402.5 3229.92 / 3229.92 2322.26 / 2322.26 Microbiology Past 72 Hours 08/08/19 17:05 Stool Occult Blood (STEPHANIE) - Final Stool Occult Blood Positive Laboratory Tests Past 24 Hrs 08/09/19 08/09/19 08/09/19 13:50 13:50 16:18 WBC RBC Hgb 8.8 L Hct 26.9 L MCV MCH MCHC RDW Std Deviation RDW Coeff of Jose Roberto Plt Count MPV Sodium Potassium Chloride Carbon Dioxide Anion Gap BUN Creatinine Estim Creat Clear Calc Est GFR (MDRD) Af Amer Est GFR (MDRD) Non-Af BUN/Creatinine Ratio Glucose Calcium Troponin I < 0.015 < 0.015 08/10/19 08/10/19 04:55 04:55 WBC 4.6 RBC 2.47 L Hgb 8.3 L Hct 25.4 L MCV 102.8 H MCH 33.6 H MCHC 32.7 RDW Std Deviation 51.3 H RDW Coeff of Jose Roberto 13.5 Plt Count 144 L MPV 10.2 Sodium 147 H Potassium 3.8 Chloride 114 H Carbon Dioxide 28.0 Anion Gap 5 BUN 9 Creatinine 0.49 L Estim Creat Clear Calc 53.09 Est GFR (MDRD) Af Amer 163 Est GFR (MDRD) Non-Af 135 BUN/Creatinine Ratio 18.5 Glucose 91 Calcium 7.7 L Troponin I Medical Necessity - Tobacco Use Smoking Status: Current every day smoker Tobacco Use: Cigarettes Assessment/Plan All Active Problems GI bleed (Acute) GI bleed - pyloric channel ulcer with clot Ok with clear liquids. continue resuscitation, type and screen. Continue Protonix. Will follow for need for repeat EGD if rebleeds due to visible clot. OK to advance diet and discharge. not sure why patient is currently on anticoagulation - would hold for 1 week and evaluate if anticoagulation is necessary EKG demonstrated lateral ST depression - no changes from prior EKG have patient follow up in my office in 1 week - repeat upper endoscopy in one month. Tobacco and ETOH cessation
== END 2019-08-10 13:54 | disposition home or self-care (01) | DRG 378 ==
LOC: ED 16:44 → PCU 18:21
PROVIDERS: Physician Assistant; Surgery; Admitting Provider Hospitalist; Emergency Provider Emergency Medicine; Family Provider Nurse Practitioner Family; PCP Nurse Practitioner Family; Referring Provider Hospitalist; Visit Provider Internal Medicine
PROC: 0DJ08ZZ Inspection of Upper Intestinal Tract, Via Natural or Artificial Opening Endoscopic (ICD-10-PCS; CPT 43235; principal; 2019-08-09 06:30)
DX: K25.4 Chronic or unspecified gastric ulcer with hemorrhage (principal); D62 Acute posthemorrhagic anemia; I38 Endocarditis, valve unspecified; K29.80 Duodenitis without bleeding; K29.70 Gastritis, unspecified, without bleeding; K21.0 Gastro-esophageal reflux disease with esophagitis; K44.9 Diaphragmatic hernia without obstruction or gangrene; F10.10 Alcohol abuse, uncomplicated; I25.10 Atherosclerotic heart disease of native coronary artery without angina pectoris; Z95.1 Presence of aortocoronary bypass graft; E03.9 Hypothyroidism, unspecified; F32.9 Major depressive disorder, single episode, unspecified; E78.5 Hyperlipidemia, unspecified; Z79.82 Long term (current) use of aspirin; Z79.02 Long term (current) use of antithrombotics/antiplatelets; I95.1 Orthostatic hypotension; Z79.890 Hormone replacement therapy; F17.210 Nicotine dependence, cigarettes, uncomplicated; R01.1 Cardiac murmur, unspecified
CPT/HCPCS: 36415; 80048; 80076; 82274; 83735; 84443; 84484; 85014; 85018; 85025; 85027; 85610; 85730; 86850; 86900; 86901; 86920; 86922; 88305; 88313; 88342; 93005; 99285; 99406; J7030; A4216; J2405

== ENCOUNTER 2019-11-04 06:28 | Emergency (ER) | payer BC, SELFPAY ==
[2019-08-09 05:19] VITALS: BMI 31.1
[2019-11-04] VITALS (7 sets, daily range): BP systolic 106–122; BP diastolic 51–66; PULSE 63–79; RESP 14–22; TEMP 36.6; O2SAT 92–100; BMI 30.4
[2019-11-04] MEDS: Ondansetron 4 MG/2 ML Vial IV (06:52)
[2019-11-04] MEDS: Morphine 4 MG/ML Syringe IV (06:54)
--- NOTE | 2019-11-04 07:05 | RAD_ITS ---
STUDY: X-RAY - LEFT WRIST REASON FOR EXAM: Pain and deformity status post fall. TECHNIQUE: 3 view(s) of the wrist were obtained. COMPARISON: None. FINDINGS: There is an impacted fracture of the distal radial metaphysis with mild dorsal angulation of the distal fragment. There is a nondisplaced avulsion fracture of the ulnar styloid process. Normal radiocarpal articulation. Normal distal radioulnar articulation. Normal carpal bones. Normal carpal articulations. Normal carpometacarpal articulation of the thumb. Normal second through fifth carpometacarpal articulations. Normal visualized metacarpal bones. There is soft tissue swelling. RAD/Wrist min 3 Views IMPRESSION: Distal radial and ulnar fractures. Electronically Signed: Francisco Kelly MD at 7:36 EST Tel , Service support ,
--- NOTE | 2019-11-04 08:20 | ED.DCSUM_ITS ---
History of Present Illness Chief Complaint: Upper Extremity Injury Detail of Chief Complaint: Left wrist injury Informant: Patient Onset: Yesterday Current Severity: Moderate Maximum Severity: Moderate Narrative: Patient presents with left wrist pain and swelling after a fall last evening. She states she was playing with her dogs when she lost her balance and fell, putting her left hand out to catch herself. She is right-hand dominant. She tried to put a brace on her wrist last night but continued to have pain throughout the evening. She has not taken anything for pain. - Past Medical History (1) Coronary artery disease Status: Chronic (2) Hyperlipidemia Status: Chronic (3) Hypothyroidism Status: Chronic (4) Status post coronary artery bypass graft Status: Chronic Past Medical History - Allergies and Home Meds Allergies/Adverse Reactions: Allergies Penicillins [PCN] Allergy (Verified 11/04/19 06:37) Unknown Primary Care Physician: Gaby German NP-C [Primary Care Provider] - Prior records reviewed: Yes Surgical History: coronary bypass surgery, total knee arthroplasty, tonsillectomy Lives: Spouse/ Significant Other Smoking Status: Current every day smoker - Family History Maternal Family History: Reports: COPD Paternal Family History: Reports: Heart Disease, Stroke Review of Systems General: Denies: Chills, Fever Eyes: Denies: Visual changes - bilaterally ENT: Denies: Bilateral ear pain Cardiovascular: Denies: Chest pain Respiratory: Denies: Dyspnea, Cough Gastrointestinal: Denies: Abdominal pain, Nausea, Vomiting, Diarrhea Genitourinary: Denies: Dysuria Musculoskeletal: Reports: Arthralgias, Swelling, Extremity Pain Neurological: Denies: Headache Hematologic: Denies: Easy bruising Allergy: Denies: Uticaria Physical Exam Vital Signs/Narrative: Vital Signs Temp Pulse Resp BP Pulse Ox 11/04/19 06:28 97.9 F 70 18 122/66 H 95 Inital Vital Signs reviewed: Yes General: Well nourished, Well developed Head: Normocephalic ENT: Moist mucous membranes Neck: Supple Cardiovascular: Regular rate, Regular rhythm Respiratory: No distress, CTA bilaterally Abdomen: Soft, Nontender Extremities: - - Tenderness palpation, edema, deformity noted around the left wrist. She can wiggle fingers and has good cap refill and sensation distally. There is no tenderness at the elbow. Neurological: Alert, Oriented x3 Psychological: Normal affect Diagnostic/Tx/Re-eval - Medical Decision Making Hep-Lock is placed. Patient was given morphine and Zofran. X-rays are ordered. Patient is signed out to oncoming physician for further treatment and disposition. ED Disposition - Plan for ED Patient: Referrals: Gaby German, FIXTURE FABRICATOR REPAIRER-C [Primary Care Provider] -
[2019-11-04] MEDS: fentaNYL 100 MCG/2 ML Ampul 50 MCG IV (08:32)
[2019-11-04] MEDS: 0.9% Normal Saline 1,000 ML 999 ML IV (08:32)
[2019-11-04] MEDS: Propofol 200 MG/20 ML Vial IV BOLUS (08:55)
--- NOTE | 2019-11-04 09:24 | RAD_ITS ---
STUDY: X-RAY - LEFT WRIST REASON FOR EXAM: Post reduction left wrist fracture. TECHNIQUE: 2 view(s) of the wrist were obtained. COMPARISON: Prereduction radiographs. FINDINGS: There is a fracture of the distal radius with improved alignment and position following reduction. There is a nondisplaced avulsion fracture of the ulnar styloid process. Normal radiocarpal articulation. Normal distal radioulnar articulation. Normal carpal bones. Normal carpal articulations. Normal carpometacarpal articulation of the thumb. Normal second through fifth carpometacarpal articulations. Normal visualized metacarpal bones. There is an overlying cast. RAD/Wrist 2 Views IMPRESSION: Improved alignment and position of distal radial fracture following reduction. Electronically Signed: Francisco Kelly MD at 9:58 EST Tel , Service support ,
--- NOTE | 2019-11-04 09:41 | ED.DEP ---
ED Disposition - Plan for ED Patient: Disposition: Home or Assisted Living Diagnosis: Colles' fracture of left radius Instructions: COLLES FRACTURE, Reduction Required, Splint Care Prescriptions: Hydrocodone Bitart/Apap 5-325 [Triplett 5MG-325MG] 1 tablet PO Q4H PRN PRN 2 Days #10 tablet PRN Reason: Pain Transmission Status: Received by [facility][id number] Referrals: Gaby German NP-C [Primary Care Provider] - Nikunj Jones MD [STAFF PHYSICIAN] - 1-2 Weeks
== END 2019-11-04 10:21 | disposition home or self-care (01) ==
PROVIDERS: Emergency Provider Emergency Medicine; Family Provider Nurse Practitioner Family; PCP Nurse Practitioner Family
DX: S52.532A Colles' fracture of left radius, initial encounter for closed fracture (principal); S52.615A Nondisplaced fracture of left ulna styloid process, initial encounter for closed fracture; I25.10 Atherosclerotic heart disease of native coronary artery without angina pectoris; E78.5 Hyperlipidemia, unspecified; E03.9 Hypothyroidism, unspecified; Z95.1 Presence of aortocoronary bypass graft; F17.200 Nicotine dependence, unspecified, uncomplicated; Z79.899 Other long term (current) drug therapy; W18.30XA Fall on same level, unspecified, initial encounter; Y93.89 Activity, other specified; Y92.89 Other specified places as the place of occurrence of the external cause; Y99.8 Other external cause status
CPT/HCPCS: 25605; 73100; 73110; 96361; 96374; 96375; 99152; 99285; A4216; J2405

== ENCOUNTER → 2021-09-20 10:37 | Outpatient (CLI) | payer MEDICARE, BC, SELFPAY ==
--- NOTE | 2021-09-21 06:35 | PFT ---
INTRODUCTION: The patient is a 71-year-old female that presents for pulmonary function studies secondary to a diagnosis of shortness of breath. Respiratory therapy reported good patient effort. Bronchodilators were used during testing. INTERPRETATION: Forced expiration spirometry demonstrates the presence of a mild large airways obstructive ventilatory defect. There was no significant response to aerosolized bronchodilators, based upon strict ATS criteria. Spirograms are of good quality but do not plateau indicating slow emptying of the lungs. Body plethysmography was performed and revealed an elevated RV to 126% of predicted, indicative of underlying air trapping. Diffusing capacity by single breath CO is within normal limits. IMPRESSION: Irreversible mild large airways obstructive ventilatory defect with associated air trapping and preserved diffusing capacity.
== END ==
PROVIDERS: PCP Nurse Practitioner Family; Referring Provider Internal Medicine Critical Care Medicine; Visit Provider Internal Medicine Critical Care Medicine
DX: R06.02 Shortness of breath (principal)
CPT/HCPCS: 94060; 94726; 94729

== ENCOUNTER → 2021-10-30 14:41 | Outpatient (CLI) | payer MEDICARE, BC, SELFPAY ==
--- NOTE | 2021-10-30 14:44 | CT_ITS ---
STUDY: LOW DOSE CT LUNG CANCER SCREENING REASON FOR EXAM: Female, 71 years old. Smoking and gt; 40 pack years quit 08/2021 RADIATION DOSAGE (If Supplied By Facility): CTDIvol = ( 3.02 ) mGy, DLP = ( 107.22 ) mGycm TECHNIQUE: No contrast was administered. Low dose technique was utilized (average mAS-38 and kVp 120). 1.25 mm axial source images with a slice interval of 1.25-mm were reconstructed in lung windows. 2.5 mm axial source images with a slice interval of 2.5-mm were reconstructed in lung windows. 5.0 mm axial source images with a slice interval of 5.0-mm were reconstructed in soft tissue windows. Nodule measured using lung windows on PACS and/or independent workstation with automated measurement of minimum and maximum diameter. Nodule measurement reported as average diameter rounded to the nearest whole number. Growth is defined as an increase ins size of greater than 1.5 mm. COMPARISON: None. NODULES: No suspicious nodules are seen. Emphysema: Hyperinflation. Emphysematous changes with centrilobular emphysema more prominent in the upper lobes. There is evidence of a right apical scarring. Mild scarring in the lateral aspect of the right middle lobe as well as in the lateral aspect of the lower lobes with bullous formation in the lateral aspect of the right lower lobe. Endobronchial lesion: None Aorta: Atherosclerotic plaque formation. Coronary arteries: Coronary artery calcification. Heart: Prior midline sternotomy and aortic valve replacement. Pulmonary artery: Unremarkable Mediastinal nodes: Unremarkable Other chest and abdominal findings: CT/Low Dose CT Lung Screening IMPRESSION: Lung-RADS category 2 - Continue annual screening with LDCT in 12 months. IMPORTANT NOTES FOR USE: ACR Lung-RADS Version 1.1 Assessment Categories Release Date: 2018 Category: Coded 0-4 bases on nodule(s) with highest degree of suspicion. Negative screen is defined as categories 1 and 2; a positive screen is defined as categories 3 and 4. Category 3 and 4A nodules that are unchanged on interval CT should be coded as category 2, and individuals returned to screening in 12 months. Category 4X: Category 3 or 4 nodules with additional imaging findings that increase the suspicion of lung cancer, such as spiculation, GGN that doubles in size in 1 year, enlarged lymph notes, etc. Category Modifiers: S (significant finding unrelated to lung cancer) Electronically Signed: You Bustillos MD at 15:19 EST , Service support ,
== END ==
PROVIDERS: PCP Nurse Practitioner Family; Referring Provider Nurse Practitioner Acute Care; Visit Provider Nurse Practitioner Acute Care
DX: F17.210 Nicotine dependence, cigarettes, uncomplicated (principal)
CPT/HCPCS: 71271

== ENCOUNTER 2023-02-27 21:39 | Emergency (ER) | payer MEDICARE, BC, SELFPAY ==
[2023-02-27 21:40] VITALS: BP 160/66; PULSE 93; RESP 16; TEMP 36.1; O2SAT 91; BMI 35.4
--- NOTE | 2023-02-27 22:01 | EKG12_ITS ---
Test Reason : SOB Blood Pressure : / mmHG Vent. Rate : 094 BPM Atrial Rate : 094 BPM P-R Int : 128 ms QRS Dur : 086 ms QT Int : 362 ms P-R-T Axes : 078 091 264 degrees QTc Int : 452 ms Normal sinus rhythm Rightward axis ST & T wave abnormality, consider inferior ischemia Abnormal ECG Confirmed by OLIVIER AGEE ([id number]), online editor JAIMIE VILLALTA ([id number]) on 03/03/2023 7:38:46 AM Referred By: Confirmed By:OLIVIER AGEE
[2023-02-27] MEDS: Ipratropium/Albuterol Sulfate 3 ML AMPUL.NEB INHALATION ×2 (22:10→22:11)
[2023-02-27] MEDS: Albuterol 2.5 MG/3 ML VIAL.NEB. INHALATION (22:11)
[2023-02-27] MEDS: MethylPREDNISolone 125 MG/2 ML Vial IV (22:39)
[2023-02-27 22:42] LABS: Absolute Lymphocyte Count 3.32 X10^3/uL (0.83-4.51); Absolute Neutrophil Count 3.6 X10^3/uL (2.0-7.7); Basophil# 0.06 X10^3/uL; Basophil% 0.7 % (0-1); Eosinophil# 0.61 X10^3/uL; Eosinophils% 7.2 % (0-5); Hematocrit 38.1 % (37-47); Hemoglobin 12.5 g/dL (12.0-15.0); Lymphocyte # 3.32 X10^3/ul (0.83-4.51); Lymphocyte % 39.3 % (19-41); Mean Corp Hgb Conc 32.8 g/dL (32-36); Mean Corpuscular Hgb 31.2 pg (27.0-32.0); Monocyte# 0.82 X10^3/uL; Monocyte% 9.7 % (0-10); NRBC Flagged by Analyzer 0 % (0-5); Neutrophil # 3.62 X10^3/uL (2.7-7.7); Platelet Count 303 K/mm3 (150-450); RBC Distribution Width CV 12.9 % (11.6-14.6); RBC Distribution Width SD 44.9 fl (35.1-43.9); Red Blood Count 4.01 M/mm3 (4.2-5.4); White Blood Count 8.4 K/mm3 (4.4-11.0)
[2023-02-27 22:57] LABS: Anion Gap 7 (5-15); BUN 10 mg/dL (7-18); BUN/Creat Ratio 13.9 RATIO (10-20); Calcium,Total 9.4 mg/dL (8.5-10.1); Chloride 107 mmol/L (98-107); Creatinine, Serum 0.72 mg/dL (0.55-1.02); EST Glomerular Filtration Rate 85 mL/min (>60); Est Glom Filt Rate - Afr Amer 103 mL/min (>60); Estimated Creatinine Clearance 50.91 ml/min; Glucose 99 mg/dL (74-106); Magnesium 1.6 mg/dL (1.6-2.6); Potassium 3.4 mmol/L (3.5-5.1); Sodium Level 140 mmol/L (136-145)
[2023-02-27 23:07] LABS: BNP,B-Type NATRIURETIC PEPTIDE 65.2 pg/mL (0-100)
--- NOTE | 2023-02-27 23:15 | RAD_ITS ---
EXAM: XR CHEST, 2 VIEWS CLINICAL INDICATION: dyspnea TECHNIQUE: Frontal and lateral views of the chest. This report was created using [facility] report generation technology. COMPARISON: Low-dose chest CT of 10/30/2021. FINDINGS: LUNGS AND PLEURAL SPACES: The lungs remain hyperinflated with pruning of the peripheral pulmonary vascular markings due to pulmonary emphysema. No superimposed acute pulmonary infiltrates. Suture material again noted at the right apex medially. Minimal tenting of the hemidiaphragms to the basal pleural parenchymal scarring. Emphysematous bullae noted at the right base. No pneumothorax. No effusion. HEART: Normal heart size. No pulmonary venous hypertension. MEDIASTINUM: Previous median sternotomy and CABG again noted with numerous mediastinal surgical clips. BONES/JOINTS: Mild thoracic degenerative spurring. No acute osseous abnormality. SOFT TISSUES: Unremarkable. VASCULATURE: Vascular calcification noted within the neck. Thoracic aorta is mildly elongated and calcific. RAD/Chest PA and Lateral IMPRESSION: 1. Pulmonary emphysema. 2. Previous partial right pneumonectomy. 3. Previous median sternotomy. 4. No superimposed acute pulmonary infiltrates identified. Electronically Signed: Maxime Moreau MD at 0:00 EDT ,
--- NOTE | 2023-02-28 00:42 | EDS_ITS ---
HPI History of Present Illness Chief Complaint: Shortness of Breath Informant: patient and family Narrative Narrative: Patient is a 73-year-old female with past medical history of COPD however she states she does not require supplemental oxygen and she does not need daily maintenance inhaler. She states that she quit smoking a few years ago. She denies any known sick contacts or recent sick symptoms. However she states over the last 1 to 2 days she has noticed some increasing wheezing and shortness of breath that seem to worsen this afternoon/evening. She states that as her COPD is relatively well controlled with minimal treatment she does not have home nebulizers to help. With her increased shortness of breath there was concern that she may have a developing infection and with this presents for evaluation [facility] Medical History (Updated 02/28/23 @ 00:[address] Jamil Calderon, ) Alcohol abuse Anemia Arthritis COPD (chronic obstructive pulmonary disease) Coronary artery disease Depression GI bleed History of COPD Hyperlipidemia Hypothyroidism JOSIAH (obstructive sleep apnea) Osteopenia SOB (shortness of breath) on exertion Home Medications albuterol sulfate 90 mcg/actuation aerosol inhaler 2 puff inhalation Q4H PRN PRN Sob &/Or Wheezing 08/08/19 [History Last Taken 08/07/19] escitalopram oxalate 10 mg tablet 10 mg PO DAILY anxiety 08/08/19 [History Last Taken 08/07/19] ezetimibe 10 mg tablet 10 mg PO DAILY cholesterol 08/08/19 [History Last Taken 08/08/19] levothyroxine 100 mcg tablet 100 mcg PO DAILY thyroid 08/08/19 [History Last Taken 08/08/19] niacin 1,000 mg tablet,extended release 24 hr 1,000 mg PO DAILY heart 08/08/19 [History Last Taken 08/07/19] rosuvastatin 40 mg tablet 40 mg PO DAILY cholesterol 08/08/19 [History Last Taken 08/07/19] pantoprazole 40 mg tablet,delayed release 40 mg PO BID #60 tabs 08/10/19 [Rx Last Taken Unknown] mgzcdhz-nibvwxfvfdsis-dzgcefep 250 mg-250 mg-65 mg tablet (Excedrin Migraine) 1 tab PO ONCE 04/24/20 [History Last Taken Unknown] nitroglycerin 0.4 mg sublingual tablet 0.4 mg sublingual Q5M PRN 04/24/20 [History Last Taken Unknown] prednisone 20 mg tablet 40 mg PO DAILY 5 days #10 tabs 02/28/23 [Rx Last Taken Unknown] Allergy/AdvReac Type Severity Reaction Status Date / Time Penicillins [PCN] Allergy Unknown Verified 02/27/23 21:39 Family History Other CVA (cerebral vascular accident) History of COPD Myocardial infarction Surgical History H/O cardiac catheterization H/O colonoscopy H/O total knee replacement Status post coronary artery bypass graft Social History Smoking Status: Former smoker Tobacco: How many years used: 50 alcohol intake: current caffeine: Yes ROS ROS ED Constitutional Constitutional ED: Denies chills or fever(s) ENT ENT ED: Denies rhinorrhea or sore throat Cardiovascular Cardiovascular: Denies chest pain Respiratory/Chest Respiratory/Chest: Reports cough and dyspnea Gastrointestinal Gastrointestinal: Denies abdominal pain, diarrhea, nausea or vomiting Genitourinary Genitourinary ED: Denies dysuria Musculoskeletal Musculoskeletal: Denies myalgias Integumentary Denies rash Neurologic Neurologic: Denies headache(s) Hematologic/Lymphatic Hematologic/Lymphatic: Denies easy bleeding or easy bruising EXAM Physical Exam Const Vital Signs: 02/27/23 21:40 02/27/23 22:42 Temperature 96.9 F L Temperature Source Temporal Pulse Rate 93 Respiratory Rate 16 Respiratory Effort Normal Respiratory Depth Normal Respiratory Pattern Normal Blood Pressure 160/66 H Blood Pressure Mean 97 Pulse Ox 91 Oxygen Delivery Method Room Air Positive well nourished and well developed General Appearance ED: well developed HEENT HEENT Narrative: No tongue or lip swelling noted no airway edema or compromise. There is mild cobblestoning the posterior pharynx consistent with sinus drainage Eyes PERRL and EOMs intact bilaterally Neck supple and no JVD Chest Wall palpation of chest normal Resp Resp Narrative: Patient is in mild respiratory distress with tachypnea and accessory muscle use. Breath sounds are diminished throughout with diffuse inspiratory and expiratory wheezing Cardio regular rate and regular rhythm Rate: other Other Details: Radial pulses are plus 2 out of 4 bilaterally are equal and symmetric Extremity Extremity Narrative: No asymmetric edema no pitting edema negative Homans' sign bilaterally Neuro oriented x3 and CN's II-XII intact bilaterally Sensorium / Orientation: alert Psych mental status grossly normal Skin no rashes or lesions noted MDM MDM MDM Narrative Medical decision making narrative: Patient presented to the ER afebrile and satting roughly 90% on room air however she did have increased work of breathing and diffuse inspiratory expiratory wheezing consistent/concerning for COPD exacerbation. There is also concern the patient could have developed shortness of breath secondary to acute blood loss anemia severe electrolyte disturbance congestive heart failure or pneumonia or pneumothorax. Therefore basic labs and a chest x-ray were obtained. Labs revealed no clinically significant findings. Chest x-ray revealed pulmonary edema without pneumothorax or infiltrate. Patient was given Solu-Medrol as well as DuoNeb and albuterol treatments. On reevaluation she has resolved her increased work of breathing and her breath sounds are greatly improved as well. Therefore at this time with work-up showing no signs of acute pneumonia or pneumothorax or congestive heart failure or blood volume or electrolyte disturbance symptoms have resolved with steroids and breathing treatments patient is otherwise safe for discharge History & Record Review Discussion w/independent historian: Patient and Family Lab Data Attestation: I reviewed the patient's lab results. Labs: Laboratory Results - last 24 hr 02/27/23 02/27/23 02/27/23 22:27 22:27 22:27 WBC 8.4 RBC 4.01 L Hgb 12.5 Hct 38.1 MCV 95.0 MCH 31.2 MCHC 32.8 RDW Std Deviation 44.9 H RDW Coeff of Jose Roberto 12.9 Plt Count 303 MPV 9.0 Immature Gran % (Auto) 0.100 Neut % (Auto) 43.0 L Lymph % (Auto) 39.3 [place] % (Auto) 9.7 Eos % (Auto) 7.2 H Baso % (Auto) 0.7 Absolute Neuts (auto) 3.6 Absolute Lymphs (auto) 3.32 Nucleated RBC % 0 Sodium 140 Potassium 3.4 L Chloride 107 Carbon Dioxide 26.0 Anion Gap 7 BUN 10 Creatinine 0.72 Estim Creat Clear Calc 50.91 Est GFR (MDRD) Af Amer 103 Est GFR (MDRD) Non-Af 85 BUN/Creatinine Ratio 13.9 Glucose 99 Calcium 9.4 Magnesium 1.6 B-Natriuretic Peptide 65.2 Radiography Diagnostic Testing: Clinical Impression(s) from Imaging Studies Chest X-Ray 02/27/23 23:15 IMPRESSION: 1. Pulmonary emphysema. 2. Previous partial right pneumonectomy. 3. Previous median sternotomy. 4. No superimposed acute pulmonary infiltrates identified. Electronically Signed: Maxime Moreau MD at 0:00 EDT , Chest x-ray as interpreted by the emergency medicine physician reveals pulmonary emphysema without acute infiltrate pneumothorax or pleural effusion Discharge Plan Triage Chief Complaint: Shortness of Breath ED Provider: Jamil Calderon Dx/Rx/DC Orders Clinical Impression: COPD with acute exacerbation, Smoking greater than 40 pack years Instructions: COPD: Wheezing and Chest Tightness Prescriptions: New prednisone 20 mg tablet 40 mg PO DAILY 5 Days Qty: 10 0RF No Action nitroglycerin 0.4 mg tablet, sublingual 0.4 mg SUBLINGUAL Q5M PRN Rx Instructions: do not exceed 3 doses per episode Excedrin Migraine 250-250-65 mg tablet 1 tab PO ONCE niacin 1,000 MG tablet extended release 24 hr 1,000 mg PO DAILY levothyroxine 100 MCG tablet 100 mcg PO DAILY escitalopram oxalate 10 MG tablet 10 mg PO DAILY ezetimibe 10 MG tablet 10 mg PO DAILY rosuvastatin 40 MG tablet 40 mg PO DAILY albuterol sulfate 8.5 GM HFA aerosol inhaler 2 puff inhalation Q4H PRN PRN (Reason: Sob &/Or Wheezing) Label Comments: INHALE 2 PUFFS BY MOUTH EVERY FOUR HOURS NEEDED FOR WHEEZING pantoprazole 40 MG tablet 40 mg PO BID Qty: 60 0RF Primary Care Provider: JAMIL ESTEBAN Referrals: JAMIL ESTEBAN [Other] Activity Restrictions/Additional Instructions: Your exam today indicates that you had a COPD exacerbation but there is no signs of pneumonia abnormal laboratory values or heart issues. Use your rescue albuterol as needed and take the steroids to reduce inflammation and return to the ER should you have any further concerns Disposition Disposition: Home, Self Care Discharge Date/Time: 02/28/23 00:58
== END 2023-02-28 00:58 | disposition home or self-care (01) ==
PROVIDERS: Emergency Provider Emergency Medicine; Visit Provider Emergency Medicine
DX: J44.1 Chronic obstructive pulmonary disease with (acute) exacerbation (principal); E78.5 Hyperlipidemia, unspecified; Z87.891 Personal history of nicotine dependence; I25.10 Atherosclerotic heart disease of native coronary artery without angina pectoris; Z79.52 Long term (current) use of systemic steroids
CPT/HCPCS: 71046; 80048; 83735; 83880; 85025; 93005; 96374; 99283; A4216

== ENCOUNTER → 2023-05-06 | Outpatient (CLI) | payer MEDICARE, BC, SELFPAY ==
--- NOTE | 2023-05-06 12:48 | CT_ITS ---
INDICATION: and gt; 40 pack years quit 09/09/21 EXAMINATION: CT CHEST WITH CONTRAST - CT Low Dose CT Chest for Lung Cancer Screening Radiation CTDIvol 3.18 Radiation DLP 106.82 A radiation dose optimization technique was used for this scan. COMPARISON: 10/30/[address] images only, no report. FINDINGS: Noncontrast serial CT axial images through the chest with coronal and sagittal reformatted series. MEDIASTINUM: Dense coronary artery atherosclerotic calcifications. Scattered mediastinal surgical clips. Noncontrast mediastinum is otherwise unremarkable. LUNG PARENCHYMA: Emphysematous lung changes, biapical predominant. No acute pulmonary parenchymal abnormality. Stable dominant 5 mm left lower lobe pulmonary nodule on axial image 138 of series 2 from 2 years prior. Right apical suture line. PLEURA: No pleural effusion. No pneumothorax. BONES: Median sternotomy wires. Mid thoracic vertebral body hemangioma. UPPER ABDOMEN: Unremarkable. CT/Low Dose CT Lung Screening IMPRESSION: Stable dominant 5 mm left lower lobe pulmonary nodule from 2 years prior. Lung-RADS CATEGORY 2: Benign Appearance Nodules. Annual screening with low dose CT in 12 months. Electronically Signed: Mauro Sinha MD at 3:25 EDT ,
== END | disposition home or self-care (01) ==
LOC: CT 12:46
PROVIDERS: Referring Provider Nurse Practitioner Acute Care; Visit Provider Nurse Practitioner Acute Care
DX: F17.210 Nicotine dependence, cigarettes, uncomplicated (principal)
CPT/HCPCS: 71271

== ENCOUNTER → 2023-05-25 | Outpatient (CLI) | payer MEDICARE, BC, SELFPAY | END | disposition home or self-care (01) | LOC: SL 19:55 | PROVIDERS: PCP Physician Assistant; Referring Provider Internal Medicine Critical Care Medicine; Visit Provider Internal Medicine Critical Care Medicine | DX: G47.33 Obstructive sleep apnea (adult) (pediatric) (principal) | CPT/HCPCS: 95810 ==

== ENCOUNTER → 2023-06-16 | Outpatient (CLI) | payer MEDICARE, BC, SELFPAY | END | disposition home or self-care (01) | LOC: SL 20:13 | PROVIDERS: PCP Physician Assistant; Visit Provider Nurse Practitioner Acute Care | DX: G47.33 Obstructive sleep apnea (adult) (pediatric) (principal) | CPT/HCPCS: 95811 ==

== ENCOUNTER → 2024-05-09 | Outpatient (CLI) | payer MEDICARE, BC, SELFPAY ==
--- NOTE | 2024-05-09 13:30 | CT_ITS ---
STUDY: LOW DOSE CT LUNG CANCER SCREENING REASON FOR EXAM: Female, 74 years old. Former smoker. Patient smoked 1 pack per day for 50 years. COPD. RADIATION DOSAGE (If Supplied By Facility): CTDIvol = ( 4.02 ) mGy, DLP = ( 134.91 ) mGycm TECHNIQUE: No contrast was administered. Low dose technique was utilized (average mAS-38 and kVp 120). 1.25 mm axial source images with a slice interval of 1.25-mm were reconstructed in lung windows. 2.5 mm axial source images with a slice interval of 2.5-mm were reconstructed in lung windows. 5.0 mm axial source images with a slice interval of 5.0-mm were reconstructed in soft tissue windows. COMPARISON: Comparison is made with prior study dated May 06, 2023. NODULES: Stable partially calcified 5 mm nodule in the peripheral lateral aspect of the left lower lobe as seen on axial image #150. Emphysema: Hyperinflation. Emphysematous changes. Stable mild scarring with bullous formation in the right lower lobe. Endobronchial lesion: None Aorta: Atherosclerotic plaque formation. CORONARY ARTERIES: Coronary artery calcification is seen. Heart: Prior CABG Pulmonary artery: Unremarkable Mediastinal nodes: Other chest and abdominal findings: CT/Low Dose CT Lung Screening IMPRESSION: Lung-RADS category 2 - Continue annual screening with LDCT in 12 months. IMPORTANT NOTES FOR USE: ACR Lung-RADS Version 1.1 Assessment Categories Release Date: 2018 Category: Coded 0-4 bases on nodule(s) with highest degree of suspicion. Negative screen is defined as categories 1 and 2; a positive screen is defined as categories 3 and 4. Category 3 and 4A nodules that are unchanged on interval CT should be coded as category 2, and individuals returned to screening in 12 months. Category 4X: Category 3 or 4 nodules with additional imaging findings that increase the suspicion of lung cancer, such as spiculation, GGN that doubles in size in 1 year, enlarged lymph notes, etc. Category Modifiers: S (significant finding unrelated to lung cancer) Electronically Signed: You Bustillos MD at 15:38 EDT ,
== END | disposition home or self-care (01) ==
LOC: CT 13:24
PROVIDERS: PCP Physician Assistant; Referring Provider Nurse Practitioner Acute Care; Visit Provider Nurse Practitioner Acute Care
DX: F17.210 Nicotine dependence, cigarettes, uncomplicated (principal)
CPT/HCPCS: 71271